=== PATIENT | female | born 1985 | race Caucasian/White ===

== ENCOUNTER 2016-09-06 11:51 | Emergency (ER) | payer OTHER ==
[2016-09-06] MEDS ORDERED: Sodium Chloride 0.9% 1,000 ML IV ONE (11:58)
[2016-09-06] MEDS ORDERED: Famotidine 20 MG/2 ML SDV IVPUSH ONE (11:58)
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
[2016-09-06 12:37] LABS: CHLORIDE,CL 110 mmol/L (98-110); SODIUM,NA 141 mmol/L (136-146)
[2016-09-06 12:41] VITALS: BP 125/90
--- NOTE | 2016-09-07 17:41 | CR ---
EXAM DATE: 09/06/16 PATIENT'S AGE: 31 Patient: DANIELLE GARCIA Facility: [place], [place] : 1985 Study: XRay Chest [id number] 12:22:59 PM Ordering Physician: Arjun Navarro Final Report: INDICATION: Shortness of breath. TECHNIQUE: Single AP view Comparison: 11/07/2013 FINDINGS: The cardiomediastinal contours are unchanged. No new focal or diffuse pulmonary opacities. No definite pneumothorax or pleural effusion. The bones are unchanged. IMPRESSION: No acute pulmonary process. Dictated by Quinten Angel MD @ Sep 06 2016 12:41PM (Electronic Signature) Report Signed by Proxy. TABITHA
== END 2016-09-06 12:51 | disposition home or self-care (01) ==
LOC: MW.ED 11:51
DX: F10.920 Alcohol use, unspecified with intoxication, uncomplicated (principal); K21.9 Gastro-esophageal reflux disease without esophagitis; F41.9 Anxiety disorder, unspecified; F32.9 Major depressive disorder, single episode, unspecified; F17.210 Nicotine dependence, cigarettes, uncomplicated; Z88.1 Allergy status to other antibiotic agents; Z88.8 Allergy status to other drugs, medicaments and biological substances; Z90.49 Acquired absence of other specified parts of digestive tract
CPT/HCPCS: 36415; 71010; 80053; 83690; 85025; 93005; 99284; G0480

== ENCOUNTER 2016-09-24 00:33 | Emergency (ER) | payer MEDICAID, OTHER ==
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
== END 2016-09-24 00:46 | disposition left against medical advice (07) ==
LOC: MW.ED 00:33
DX: F10.129 Alcohol abuse with intoxication, unspecified (principal); Z88.1 Allergy status to other antibiotic agents; Z90.49 Acquired absence of other specified parts of digestive tract; F17.210 Nicotine dependence, cigarettes, uncomplicated; K21.9 Gastro-esophageal reflux disease without esophagitis
CPT/HCPCS: 99281; 99282

== ENCOUNTER 2016-10-13 14:13 | Emergency (ER) | payer MEDICAID ==
[2016-10-13 14:28] VITALS: BP 131/78
[2016-10-13] MEDS ORDERED: Ketorolac 60 MG/2 ML SDV IM ONE (14:31)
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
--- NOTE | 2016-10-13 15:16 | CR ---
EXAMINATION: Left elbow HISTORY: Fall COMPARISON: 04/09/2011 TECHNIQUE: 2 views FINDINGS/IMPRESSION: There is no acute osseous abnormality, dislocation, or fracture identified. Bon e mineralization and joint spaces appear normal. No soft tissue swelling or joint effusion.
== END 2016-10-13 15:58 | disposition home or self-care (01) ==
LOC: MW.ED 14:13
DX: S50.02XA Contusion of left elbow, initial encounter (principal); F17.210 Nicotine dependence, cigarettes, uncomplicated; K21.9 Gastro-esophageal reflux disease without esophagitis; F41.9 Anxiety disorder, unspecified; Z85.038 Personal history of other malignant neoplasm of large intestine; Z90.49 Acquired absence of other specified parts of digestive tract; Z98.890 Other specified postprocedural states; Z79.899 Other long term (current) drug therapy; Z88.1 Allergy status to other antibiotic agents; W20.8XXA Other cause of strike by thrown, projected or falling object, initial encounter; Y93.89 Activity, other specified; Y92.69 Other specified industrial and construction area as the place of occurrence of the external cause; Y99.0 Civilian activity done for income or pay
CPT/HCPCS: 73070-26-LT; 73070-LT; 99282; 99283

== ENCOUNTER 2016-10-24 02:34 | Emergency (ER) | payer MEDICAID, OTHER ==
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
[2016-10-24 04:28] VITALS: BP 120/74
--- NOTE | 2016-10-26 14:09 | CR ---
EXAM DATE: 10/24/16 PATIENT'S AGE: 31 Patient: DANIELLE GARCIA Facility: [place], [place] Site . Site : 1985 Study: XRay Extremity Right Foot [id number]/1/2017 3:43:15 AM Ordering Physician: Doctor Christopher Final Report: Indication: Pain in great toe and ankle after jumping off a dock Technique: Two views right foot. Comparison: None Findings: Bones: Alignment is normal. No fractures or bone lesions. Joint spaces: Unremarkable. Soft tissues: Unremarkable. Impression: Negative. Dictated by Darlene Prescott MD @ Oct 24 2016 3:58AM (Electronic Signature) Report Signed by Proxy. TABITHA
== END 2016-10-24 04:25 | disposition home or self-care (01) ==
LOC: MW.ED 02:34
DX: S99.921A Unspecified injury of right foot, initial encounter (principal); F17.210 Nicotine dependence, cigarettes, uncomplicated; K21.9 Gastro-esophageal reflux disease without esophagitis; Z88.1 Allergy status to other antibiotic agents; Z90.49 Acquired absence of other specified parts of digestive tract; X58.XXXA Exposure to other specified factors, initial encounter
CPT/HCPCS: 73620-26-RT; 73620-RT; 99282; 99283

== ENCOUNTER 2016-11-07 05:05 | Emergency (ER) | payer MEDICAID ==
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
[2016-11-07] MEDS ORDERED: Acetaminophen 500 MG Tab PO ONE (05:28)
[2016-11-07 06:33] VITALS: BP 126/66
--- NOTE | 2016-11-09 11:12 | CT ---
EXAM DATE: 11/07/16 PATIENT'S AGE: 31 Patient: DANIELLE GARCIA Facility: [place], [place] Site . Site : 1985 Study: CT Head WO CONT [id number]/15/2017 5:38:57 AM Ordering Physician: Marline Sosa Final Report: INDICATION: Headache. TECHNIQUE: CT head without i.v. contrast. COMPARISON: 05/11/2015. FINDINGS: CSF spaces: Within normal limits for age. Brain parenchyma: The brain parenchyma is normal in appearance with preservation of the michael-white differentiation. No sign of mass, hemorrhage, or midline shift seen. Skull base and calvarium: The visualized paranasal sinuses are well aerated. The mastoid air cells are clear. The visualized orbits are grossly unremarkable. No skull fractures are seen. IMPRESSION: 1. No evidence of acute infarction, intracranial hemorrhage, or mass effect seen. Dictated by Jimmy Fernandez MD @ 11/07/2016 6:15:00 AM Dictated by: Jimmy Fernandez MD @ 11/07/2016 06:15:05 (Electronic Signature) Report Signed by Proxy. [facility]ITALEsperanza
== END 2016-11-07 06:22 | disposition home or self-care (01) ==
LOC: MW.ED 05:05
DX: R51 Headache (principal); T74.21XA Adult sexual abuse, confirmed, initial encounter; K21.9 Gastro-esophageal reflux disease without esophagitis; F41.9 Anxiety disorder, unspecified; F32.9 Major depressive disorder, single episode, unspecified; F17.210 Nicotine dependence, cigarettes, uncomplicated; Z88.1 Allergy status to other antibiotic agents; Z90.49 Acquired absence of other specified parts of digestive tract; Z98.890 Other specified postprocedural states
CPT/HCPCS: 70450; 99284; A9270

== ENCOUNTER 2017-01-09 01:43 | Emergency (ER) | payer MEDICAID ==
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
[2017-01-09 02:37] LABS: CHLORIDE,CL 111 mmol/L (98-110); SODIUM,NA 142 mmol/L (136-146)
[2017-01-09 04:33] VITALS: BP 119/85
--- NOTE | 2017-01-11 14:35 | CT ---
EXAM DATE: 01/09/17 PATIENT'S AGE: 31 Patient: DANIELLE GARCIA Facility: [place], [place] Site . Site : 1985 Study: CT Head WO CONT [id number]/16/2017 3:00:23 AM Ordering Physician: Thierry Ramos Final Report: INDICATIONS: Pain. Hit head tonight. History of seizures. TECHNIQUE: CT head without contrast. COMPARISON: CT head without contrast November 07, 2016. FINDINGS: No mass effect, midline shift or hydrocephalus. No CT evidence of acute hemorrhage or infarction. No abnormal extra-axial fluid collection. Bone windows show no acute abnormality. Soft tissue swelling of the right anterior scalp. IMPRESSION: No acute intracranial abnormality. Soft tissue swelling right anterior scalp. Dictated by Darryl Ruiz MD @ 01/09/2017 3:16:15 AM Dictated by: Darryl Ruiz MD @ 01/09/2017 03:16:26 (Electronic Signature) Report Signed by Proxy. [facility] H[facility]PITALEsperanza
--- NOTE | 2017-01-11 14:36 | CR ---
EXAM DATE: 01/09/17 PATIENT'S AGE: 31 Patient: DANIELLE GARCIA Facility: [place], [place] Site . Site : 1985 Study: XRay Chest [id number]/16/2017 3:01:03 AM Ordering Physician: Thierry Ramos Final Report: INDICATION: PAIN, SOB TECHNIQUE: Chest 1 view. COMPARISON: 09/06/2016. FINDINGS: No pneumothorax or pleural effusion. Lungs are clear. Cardiac and mediastinal contours are within normal limits. Upper abdomen and osseous structures as imaged show no acute abnormality. IMPRESSION: No acute cardiopulmonary disease. Dictated by: Darryl Ruiz MD @ 01/09/2017 03:31:01 (Electronic Signature) Report Signed by Proxy. TABITHA
== END 2017-01-09 03:42 | disposition home or self-care (01) ==
LOC: MW.ED 01:43
DX: S09.90XA Unspecified injury of head, initial encounter (principal); S00.03XA Contusion of scalp, initial encounter; F17.210 Nicotine dependence, cigarettes, uncomplicated; K21.9 Gastro-esophageal reflux disease without esophagitis; Z90.49 Acquired absence of other specified parts of digestive tract; Z88.1 Allergy status to other antibiotic agents; Z88.6 Allergy status to analgesic agent; W01.10XA Fall on same level from slipping, tripping and stumbling with subsequent striking against unspecified object, initial encounter
CPT/HCPCS: 36415; 70450; 70450-26; 71010; 71010-26; 80053; 84703; 85025; 93005; 99283; 99285-25

== ENCOUNTER 2017-04-10 00:31 | Emergency (ER) | payer MEDICAID | END 2017-04-10 00:32 | disposition home or self-care (01) | LOC: MW.ED 00:31 | DX: Z53.21 Procedure and treatment not carried out due to patient leaving prior to being seen by health care provider (principal) ==

== ENCOUNTER 2017-08-02 21:35 | Emergency (ER) | payer OTHER ==
[2017-08-02] MEDS ORDERED: Sodium Chloride 0.9% 1,000 ML IV ONE (21:45)
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
[2017-08-03 00:31] VITALS: BP 130/90
== END 2017-08-03 00:10 | disposition home or self-care (01) ==
LOC: MW.ED 21:35
DX: O99.89 Other specified diseases and conditions complicating pregnancy, childbirth and the puerperium (principal); R10.30 Lower abdominal pain, unspecified; F17.210 Nicotine dependence, cigarettes, uncomplicated; Z88.1 Allergy status to other antibiotic agents
CPT/HCPCS: 36415; 81001; 84702; 85025; 96360; 99284; J7040; 99283

== ENCOUNTER 2017-08-28 04:06 | Emergency (ER) | payer MEDICAID, OTHER ==
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
[2017-08-28] MEDS ORDERED: Acetaminophen 325 MG Tab PO ONE (05:06)
[2017-08-28] MEDS ORDERED: methylPREDNISolone Sodium Succinate 125 MG/2 ML SDV IM ONE (05:06)
[2017-08-28 05:43] VITALS: BP 127/74
--- NOTE | 2017-08-30 11:17 | CR ---
EXAM DATE: 08/28/17 PATIENT'S AGE: 32 Patient: DANIELLE GARCIA Facility: [place], [place] Site . Site : 1985 Study: XRay Knee Right [id number]/5/2018 11:41:13 PM Ordering Physician: Doctor Christopher Final Report: Indication: Pain, no known injury Technique: Two views right knee Comparison: None Findings: Bones: Alignment is normal. No fractures or bone lesions. Joint spaces: Unremarkable. Soft tissues: Unremarkable. Impression: Negative. Dictated by Darlene Prescott MD @ Aug 29 2017 12:12AM (Electronic Signature) Report Signed by Proxy. TABITHA
== END 2017-08-28 05:45 | disposition home or self-care (01) ==
LOC: MW.ED 04:06
DX: O99.89 Other specified diseases and conditions complicating pregnancy, childbirth and the puerperium (principal); M25.561 Pain in right knee; O99.619 Diseases of the digestive system complicating pregnancy, unspecified trimester; K21.9 Gastro-esophageal reflux disease without esophagitis; O99.340 Other mental disorders complicating pregnancy, unspecified trimester; F41.9 Anxiety disorder, unspecified; O99.330 Smoking (tobacco) complicating pregnancy, unspecified trimester; F17.210 Nicotine dependence, cigarettes, uncomplicated; Z88.1 Allergy status to other antibiotic agents; Z88.8 Allergy status to other drugs, medicaments and biological substances
CPT/HCPCS: 73560; 96372; 99283; A9270; J2930

== ENCOUNTER 2017-10-05 22:34 | Emergency (ER) | payer SELFPAY ==
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
[2017-10-05 23:00] VITALS: BP 124/85
--- NOTE | 2017-10-06 11:32 | CR ---
EXAM DATE: 10/05/17 PATIENT'S AGE: 32 Patient: DANIELLE GARCIA Facility: [place], [place] Site . Site : 1985 Study: XRay Knee Right [id number]/12/2018 11:10:44 PM Ordering Physician: Doctor Christopher Final Report: INDICATION: pain, no injury, pt states knee is "locked" TECHNIQUE: Three views of the right knee COMPARISON: 08/28/2017 FINDINGS: Bones: No fractures or bone lesions. Joint spaces: Unremarkable. Soft tissues: Unremarkable. IMPRESSION: No acute bony abnormality Dictated by Richard Donohue MD @ 10/05/2017 11:21:32 PM Dictated by: Richard Donohue MD @ 10/05/2017 23:22:14 (Electronic Signature) Report Signed by Proxy. [facility]ITALEsperanza
== END 2017-10-06 00:04 | disposition home or self-care (01) ==
LOC: MW.ED 22:34
DX: M25.561 Pain in right knee (principal); Z88.1 Allergy status to other antibiotic agents; Z88.8 Allergy status to other drugs, medicaments and biological substances
CPT/HCPCS: 73562-26-RT; 73562-RT; 99283

== ENCOUNTER 2017-11-04 21:42 | Emergency (ER) | payer SELFPAY ==
[2017-11-04] MEDS ORDERED: Sodium Chloride 0.9% 1,000 ML IV ONE (21:48)
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
[2017-11-04 22:32] LABS: CHLORIDE,CL 106 mmol/L (98-107); SODIUM,NA 143 mmol/L (136-145)
[2017-11-04 23:15] VITALS: BP 115/75
== END 2017-11-04 23:10 | disposition home or self-care (01) ==
LOC: MW.ED 21:42
DX: F10.129 Alcohol abuse with intoxication, unspecified (principal); Z88.1 Allergy status to other antibiotic agents; Y90.8 Blood alcohol level of 240 mg/100 ml or more
CPT/HCPCS: 36415; 80053; 80305; 81001; 84703; 85025; 85610; 99285; G0480; J7040; 96360

== ENCOUNTER 2017-12-13 00:03 | Emergency (ER) | payer SELFPAY ==
[2017-12-13 00:09] VITALS: BP 150/100
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
== END 2017-12-13 00:25 | disposition left against medical advice (07) ==
LOC: MW.ED 00:03
DX: S99.911A Unspecified injury of right ankle, initial encounter (principal); J40 Bronchitis, not specified as acute or chronic; Z88.1 Allergy status to other antibiotic agents; F17.210 Nicotine dependence, cigarettes, uncomplicated; X58.XXXA Exposure to other specified factors, initial encounter
CPT/HCPCS: 99283

== ENCOUNTER 2018-01-08 18:33 | Emergency (ER) | payer SELFPAY ==
[2018-01-08] MEDS ORDERED: Sodium Chloride 0.9% 2.5 ML Syringe FLUSH PRN (18:43)
[2018-01-08] MEDS ORDERED: Sodium Chloride 0.9% 10 ML Syringe FLUSH PRN (18:43)
[2018-01-08] MEDS ORDERED: LORazepam 2 MG/ML SDV ONE (18:47)
[2018-01-08] MEDS ORDERED: Ondansetron 4 MG/2 ML SDV ONE (18:48)
[2018-01-08] MEDS ORDERED: Ondansetron 4 MG/2 ML SDV IVPUSH ONE (18:48)
[2018-01-08] MEDS ORDERED: LORazepam 2 MG/ML SDV IVPUSH ONE ×2 (18:48→20:07)
[2018-01-08] MEDS ORDERED: Morphine 2 MG/ML Syringe ONE (18:51)
[2018-01-08] MEDS ORDERED: diphenhydrAMINE 50 MG/ML SDV ONE (18:56)
[2018-01-08 18:57] VITALS: BP 144/79
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
[2018-01-08] MEDS ORDERED: Morphine 4 MG/ML Syringe IVPUSH ONE (19:13)
[2018-01-08] MEDS ORDERED: Iopamidol 755 MG/ML 200 ML Multipack Bottle IVPUSH STA (19:17)
[2018-01-08 19:19] LABS: CHLORIDE,CL 104 mmol/L (98-107); SODIUM,NA 141 mmol/L (136-145)
[2018-01-08] MEDS ORDERED: Sodium Chloride 0.9% 1,000 ML IV ONE (19:22)
[2018-01-08] MEDS: diphenhydrAMINE 50 MG/ML SDV IVPUSH ONE ×2 (19:26→19:30)
[2018-01-08] MEDS ORDERED: Ziprasidone Mesylate 20 MG Vial IM ONE (20:22)
[2018-01-08] MEDS ORDERED: Water For Injection, Sterile 20 ML ONE (20:24)
[2018-01-08] MEDS ORDERED: Water For Injection, Sterile 20 ML SDV INJECT STA (20:39)
[2018-01-08] MEDS ORDERED: Nicotine 14 MG/24 Hr Patch TRDERM ONE (20:48)
--- NOTE | 2018-01-10 13:30 | CT ---
EXAM DATE: 01/08/18 PATIENT'S AGE: 32 Patient: DANIELLE GARCIA Facility: [place], [place] Site . Site : 1985 Study: CT Head [id number]/15/2018 7:09:01 PM Ordering Physician: Doctor Christopher Final Report: INDICATION: Trauma. TECHNIQUE: CT head without IV contrast. COMPARISON: CT head 01/09/2017. FINDINGS: Small amounts of fluid and mucosal thickening in the frontal, ethmoidal and maxillary sinuses. Findings consistent with mild sinusitis. No intracranial hemorrhage, edema, or mass effect. Stable benign calcific density in the subcutaneous tissues of the right lower occipital scalp. Remainder negative. IMPRESSION: No acute intracranial disease. No intracranial hemorrhage. Mild sinusitis. Please note that all CT scans at this facility use dose modulation, iterative reconstruction, and/or weight-based dosing when appropriate to reduce radiation dose to as low as reasonably achievable. Dictated by Dmitry Obregon MD @ Jan 08 2018 7:20PM (Electronic Signature) Report Signed by Proxy. MTDD
--- NOTE | 2018-01-10 13:31 | CT ---
EXAM DATE: 01/08/18 PATIENT'S AGE: 32 Patient: DANIELLE GARCIA Facility: [place], [place] Site . Site : 1985 Study: CT Spine Cervical [id number] 7:10:56 PM Ordering Physician: Doctor Christopher Final Report: HISTORY: Trauma. COMPARISON: None. TECHNIQUE: Noncontrast axial images were obtained through the cervical spine with sagittal and coronal reconstructions. FINDINGS: No evidence for acute fracture or dislocation. Vertebral body and disc space heights are preserved. Alignment is within normal. The central neural canal is patent. Prevertebral soft tissues are within normal. Please note that all CT scans at this facility use dose modulation, iterative reconstruction, and/or weight-based dosing when appropriate to reduce radiation dose to as low as reasonably achievable. Dictated by Gemini Ray MD @ Jan 08 2018 7:24PM (Electronic Signature) Report Signed by Proxy. MTDD
--- NOTE | 2018-01-10 13:32 | CT ---
EXAM DATE: 01/08/18 PATIENT'S AGE: 32 Patient: DANIELLE GARCIA Facility: [place], [place] Site . Site : 1985 Study: CT Chest [id number] 7:26:09 PM Ordering Physician: Doctor Christopher Final Report: HISTORY: Trauma. Chest pain. COMPARISON: None. TECHNIQUE: Axial images were obtained through the chest following 75 cc of Isovue-370 intravenous contrast. FINDINGS: Minimal dependent ground-glass opacities likely related to atelectasis. The lungs are otherwise clear. No thoracic lymphadenopathy. The mediastinal structures appear intact. No pleural or pericardial effusion. Post cholecystectomy changes in the upper abdomen. The adrenal glands are normal. No acute fracture. IMPRESSION: Negative chest. Please note that all CT scans at this facility use dose modulation, iterative reconstruction, and/or weight-based dosing when appropriate to reduce radiation dose to as low as reasonably achievable. Dictated by Gemini Ray MD @ Jan 08 2018 7:26PM (Electronic Signature) Report Signed by Proxy. MTDD
--- NOTE | 2018-01-10 13:33 | CT ---
EXAM DATE: 01/08/18 PATIENT'S AGE: 32 Patient: DANIELLE GARCIA Facility: [place], [place] Site . Site : 1985 Study: CT Abdomen/Pelvis [id number]/15/[id number] 7:29:07 PM Ordering Physician: Doctor Christopher Final Report: HISTORY: Trauma. Abdominal pain. COMPARISON: None. Technique : axial images were obtained through the abdomen and pelvis following 75 cc of Isovue 370 intravenous contrast. FINDINGS: The lung bases are essentially clear. Post cholecystectomy changes. The spleen, pancreas, adrenal glands and kidneys are within normal. The appendix is normal in caliber. No evidence for bowel obstruction. No lymphadenopathy or ascites. No acute fracture. IMPRESSION: No traumatic injury of the abdomen or pelvis. Please note that all CT scans at this facility use dose modulation, iterative reconstruction, and/or weight-based dosing when appropriate to reduce radiation dose to as low as reasonably achievable. Dictated by Gemini Ray MD @ Jan 08 2018 7:46PM (Electronic Signature) Report Signed by Proxy. MTDEsperanza
--- NOTE | 2018-01-10 13:34 | CR ---
EXAM DATE: 01/08/18 PATIENT'S AGE: 32 Patient: DANIELLE GARCIA Facility: [place], [place] Site . Site : 1985 Study: XRay Extremity Right humerus [id number]/[id number]/2018 7:51:37 PM Ordering Physician: Doctor Christopher Final Report: Indication: Injury and pain Technique: Right humerus 2 views Comparison: None Findings: Bones: Alignment is normal. No fractures or bone lesions. Joint spaces: Unremarkable. Soft tissues: Unremarkable. Impression: No sign of acute injury. Dictated by Kaushik Otoole MD @ Jan 08 2018 8:04PM (Electronic Signature) Report Signed by Proxy. TABITHA
== END 2018-01-08 21:00 ==
LOC: MW.ED 18:33
DX: S40.021A Contusion of right upper arm, initial encounter (principal); W13.4XXA Fall from, out of or through window, initial encounter
CPT/HCPCS: 70450; 71260; 72125; 73060; 74177; 80053; 80305; 81001; 84703; 85025; 86850; 86900; 86901; 96361; 96372; 96374; 96375; 96376; 99285; A9270; G0390; G0480; J2060; J2270; J2405; J3486; J7040; Q9967; J1200

== ENCOUNTER 2018-05-15 18:48 | Emergency (ER) | payer MEDICAID ==
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
[2018-05-15 20:11] VITALS: BP 129/76
--- NOTE | 2018-05-16 14:47 | CR ---
EXAM DATE: 05/15/18 PATIENT'S AGE: 32 Patient: DANIELLE GARCIA Facility: [place], [place] Site . Site : 1985 Study: XRay Extremity Right wrist-05/15/2018 7:26:02 PM Ordering Physician: Kathe Fernandes Final Report: 2 views of the right wrist. INDICATION: Pain. IMPRESSION: No visualized fracture. Alignments anatomic. No additional osseous lesion. Dictated by Joaquim Isaac MD @ May 15 2018 8:03PM (Electronic Signature) Report Signed by Proxy. TABITHA
== END 2018-05-15 20:12 | disposition home or self-care (01) ==
LOC: MW.ED 18:48
DX: S69.91XA Unspecified injury of right wrist, hand and finger(s), initial encounter (principal); F17.210 Nicotine dependence, cigarettes, uncomplicated; Z88.1 Allergy status to other antibiotic agents; Z90.49 Acquired absence of other specified parts of digestive tract; Z98.890 Other specified postprocedural states; X50.1XXA Overexertion from prolonged static or awkward postures, initial encounter; Y93.72 Activity, wrestling
CPT/HCPCS: 73100-26-RT; 73100-RT; 99283

== ENCOUNTER 2018-06-04 01:02 | Emergency (ER) | payer MEDICAID ==
[2018-06-04] MEDS ORDERED: Ketorolac 60 MG/2 ML SDV IM ONE (01:23)
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
[2018-06-04 02:31] VITALS: BP 115/76
--- NOTE | 2018-06-04 02:49 | CR ---
INDICATION: Knee pain COMPARISON: None available. FINDINGS: The left knee was examined with AP and lateral views for a total of two views. There is no sign of fracture or dislocation. The medial and lateral compartments are normal in height. There is no sign of a joint effusion. No soft tissue abnormality is seen. IMPRESSION: Normal left knee. Dictated by Orlando Cosby MD @ Jun 04 2018 2:48AM Signed by Dr. Orlando Cosby @ Jun 04 2018 2:48AM
== END 2018-06-04 02:40 | disposition home or self-care (01) ==
LOC: MW.ED 01:02
DX: S89.92XA Unspecified injury of left lower leg, initial encounter (principal); Z88.8 Allergy status to other drugs, medicaments and biological substances; F17.210 Nicotine dependence, cigarettes, uncomplicated; W03.XXXA Other fall on same level due to collision with another person, initial encounter
CPT/HCPCS: 73560; 96372; 99283; J1885

== ENCOUNTER 2018-06-16 00:06 | Emergency (ER) | payer MEDICAID ==
[2018-06-16 00:34] VITALS: BP 124/75
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
== END 2018-06-16 01:25 | disposition home or self-care (01) ==
LOC: MW.ED 00:06
DX: S89.92XA Unspecified injury of left lower leg, initial encounter (principal); Z91.14 Patient's other noncompliance with medication regimen; Z88.1 Allergy status to other antibiotic agents; X58.XXXA Exposure to other specified factors, initial encounter
CPT/HCPCS: 99282; 99283

== ENCOUNTER 2018-07-23 00:21 | Emergency (ER) | payer MEDICAID ==
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
[2018-07-23 00:37] VITALS: BP 183/163
== END 2018-07-23 00:40 | disposition home or self-care (01) ==
LOC: MW.ED 00:21
DX: Z04.3 Encounter for examination and observation following other accident (principal); Z88.1 Allergy status to other antibiotic agents
CPT/HCPCS: 99283

== ENCOUNTER 2018-07-27 09:22 | Emergency (ER) | payer MEDICAID ==
[2018-07-27 09:37] VITALS: BP 130/85
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
== END 2018-07-27 10:04 | disposition home or self-care (01) ==
LOC: MW.ED 09:22
DX: R56.9 Unspecified convulsions (principal); F17.210 Nicotine dependence, cigarettes, uncomplicated; Z88.1 Allergy status to other antibiotic agents
CPT/HCPCS: 99284

== ENCOUNTER 2018-08-14 10:49 | Emergency (ER) | payer MEDICAID ==
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
[2018-08-14 12:11] VITALS: BP 132/80
--- NOTE | 2018-08-14 12:27 | CR ---
INDICATION: Chest pain COMPARISON: none TECHNIQUE: Portable AP semi-erect chest performed at 11:25 a.m. FINDINGS: The lungs are clear. There is no evidence of pneumothorax. The heart, mediastinum and pulmonary vessels are of normal size. There is no evidence of pleural fluid. IMPRESSION: Negative chest. Dictated by Richard Mera MD @ Aug 14 2018 12:25PM Signed by Dr. Richard Mera @ Aug 14 2018 12:26PM
== END 2018-08-14 12:11 ==
LOC: MW.ED 10:49
DX: Z13.9 Encounter for screening, unspecified (principal); Z88.1 Allergy status to other antibiotic agents
CPT/HCPCS: 71045; 71045-26; 80053; 81003; 81025; 85025; 93005; 99285-25

== ENCOUNTER 2019-05-18 02:31 | Emergency (ER) | payer MEDICAID ==
[2019-05-18] MEDS ORDERED: Ondansetron 4 MG/2 ML SDV IVPUSH ONE (02:50)
[2019-05-18] MEDS ORDERED: Sodium Chloride 0.9% 1,000 ML IV ONE (02:50)
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
[2019-05-18 03:46] LABS: ACETAMINOPHEN <2.0 ug/mL; BLOOD UREA NITROGEN,BUN 7 mg/dL (7.0-18.0); CARBON DIOXIDE,CO2 24.9 mmol/L (21.0-32.0); CHLORIDE,CL 105 mmol/L (98-107); GLUCOSE RANDOM 101 mg/dL (74-106); POTASSIUM,K 3.4 mmol/L (3.5-5.1); SODIUM,NA 143 mmol/L (136-145)
[2019-05-18 04:56] VITALS: BP 113/71; PULSE 77
== END 2019-05-18 04:55 | disposition home or self-care (01) ==
LOC: MW.ED 02:31
DX: R42 Dizziness and giddiness (principal); R11.0 Nausea; F17.210 Nicotine dependence, cigarettes, uncomplicated; Z98.890 Other specified postprocedural states; Z88.1 Allergy status to other antibiotic agents
CPT/HCPCS: 36415; 80053; 80305; 80320; 80329; 81001; 81025; 83735; 84443; 85025; 93005; 96361; 96374; 99284; J2405; J7030; G0480

== ENCOUNTER 2019-09-30 04:03 | Emergency (ER) | payer MEDICAID ==
[2019-09-30 04:26] VITALS: PULSE 92
[2019-09-30] MEDS ORDERED: Bacitracin Oint 1 GM U/D Packet TOP ONE (04:34)
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
[2019-09-30 05:48] VITALS: BP 118/72
--- NOTE | 2019-09-30 06:25 | CR ---
Indication: Pain Technique: Three views Comparison: None Findings: Bones: Alignment is normal. No fractures or bone lesions. Joint spaces: Unremarkable. Soft tissues: Unremarkable. Dictated by Max Dugan MD @ Sep 30 2019 6:24AM Signed by Dr. Max Dugan @ Sep 30 2019 6:24AM
--- NOTE | 2019-09-30 06:25 | CR ---
Indication: Pain Technique: Two views Comparison: None Findings: Bones: Alignment is normal. No fractures or bone lesions. Joint spaces: Unremarkable. Soft tissues: Unremarkable. Dictated by Max Dugan MD @ Sep 30 2019 6:23AM Signed by Dr. Max Dugan @ Sep 30 2019 6:24AM
== END 2019-09-30 05:45 | disposition home or self-care (01) ==
LOC: MW.ED 04:03
DX: S80.211A Abrasion, right knee, initial encounter (principal); S80.212A Abrasion, left knee, initial encounter; R20.2 Paresthesia of skin; Z88.1 Allergy status to other antibiotic agents; X58.XXXA Exposure to other specified factors, initial encounter
CPT/HCPCS: 72100; 72100-26; 73501-26-LT; 73501-LT; 99282; 99284

== ENCOUNTER 2019-10-18 12:12 | Emergency (ER) | payer MEDICAID ==
[2019-10-18] MEDS ORDERED: Sodium Chloride 0.9% 2.5 ML Syringe FLUSH PRN (12:20)
[2019-10-18] MEDS ORDERED: Sodium Chloride 0.9% 10 ML Syringe FLUSH PRN (12:20)
[2019-10-18] MEDS ORDERED: Haloperidol Lactate 5 MG/ML SDV ONE (12:23)
[2019-10-18] MEDS ORDERED: Haloperidol Lactate 5 MG/ML SDV IM ONE (12:23)
--- NOTE | 2019-10-18 12:25 | EDM.PDOC ---
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 given to patients seen in the emergency department who are being discharged. This information is to outline your options for follow-up care. We provide all patients seen in our emergency department with a follow-up referral. The need for follow-up, as well as the timing and circumstances, are variable depending upon the specifics of your emergency department visit. If you don't have a primary care physician on staff, we will provide you with a referral. We always advise you to contact your personal physician following an emergency department visit to inform them of the circumstance of the visit and for follow-up with them and/or the need for any referrals to a consulting specialist. The emergency department will also refer you to a specialist when appropriate. This referral assures that you have the opportunity for follow-up care with a specialist. All of these measure are taken in an effort to provide you with optimal care, which includes your follow-up. Under all circumstances we always encourage you to contact your private physician who remains a resource for coordinating your care. When calling for follow-up care, please make the office aware that this follow-up is from your recent emergency room visit. If for any reason you are refused follow-up, please contact the [facility] Emergency Department at and asked to speak to the emergency department charge nurse. If you do not have a primary care physician that is caring for you, you can contact these clinics below to set up an appointment to establish care: Nalini Petit [facility] - Primary Care [address] [place] [id number] [facility] [address] [place] [id number] Sepsis Event Note (ED) - Focused Exam Vital Signs: Vital Signs Temp Pulse Resp BP Pulse Ox 10/18/19 15:41 103 H 18 151/104 H 100 10/18/19 14:40 106 H 18 138/86 96 10/18/19 14:11 115 H 18 134/73 97 10/18/19 13:40 106 H 133/87 95 10/18/19 13:12 103 H 10/18/19 12:16 36.3 C 139 H 24 H 129/67 94 L - My Orders Last 24 Hours: My Active Orders 10/18/19 12:20 Cardiac Monitoring [RC] . DIRECTED Pulse Oximetry [RC] ASDIRECTED Sodium Chloride 0.9% [Saline Flush] 10 ml FLUSH ASDIRECTED PRN Sodium Chloride 0.9% [Saline Flush] 2.5 ml FLUSH ASDIRECTED PRN Saline Lock Insert [OM.PC] Stat 10/18/19 12:24 EKG 12 Lead [EKG Documentation Completion] [RC] STAT 10/18/19 12:52 POC Glucose [Blood Glucose Check, Bedside] [RC] ONETIME 10/18/19 13:30 Dextrose 5%-Ringers 1,000 ml IV ASDIRECTED 10/18/19 15:39 EKG 12 Lead [EKG Documentation Completion] [RC] STAT - Assessment/Plan Last 24 Hours: My Active Orders 10/18/19 12:20 Cardiac Monitoring [RC] . DIRECTED Pulse Oximetry [RC] ASDIRECTED Sodium Chloride 0.9% [Saline Flush] 10 ml FLUSH ASDIRECTED PRN Sodium Chloride 0.9% [Saline Flush] 2.5 ml FLUSH ASDIRECTED PRN Saline Lock Insert [OM.PC] Stat 10/18/19 12:24 EKG 12 Lead [EKG Documentation Completion] [RC] STAT 10/18/19 12:52 POC Glucose [Blood Glucose Check, Bedside] [RC] ONETIME 10/18/19 13:30 Dextrose 5%-Ringers 1,000 ml IV ASDIRECTED 10/18/19 15:39 EKG 12 Lead [EKG Documentation Completion] [RC] STAT
[2019-10-18] MEDS ORDERED: Sodium Chloride 0.9% 1,000 ML IV ONE ×2 (12:34→12:53)
[2019-10-18] MEDS ORDERED: LORazepam 2 MG/ML SDV IVPUSH ONE (12:35)
[2019-10-18] MEDS ORDERED: Magnesium Sulfate/Water 2 GM in Premix Bag 1 BAG IV ONE (13:01)
[2019-10-18 13:09] LABS: BLOOD UREA NITROGEN,BUN 7 mg/dL (7.0-18.0); CARBON DIOXIDE,CO2 13.3 mmol/L (21.0-32.0); CHLORIDE,CL 99 mmol/L (98-107); GLUCOSE RANDOM 126 mg/dL (74-106); POTASSIUM,K 3.4 mmol/L (3.5-5.1); SODIUM,NA 138 mmol/L (136-145)
[2019-10-18 13:30] LABS: ACETAMINOPHEN <2.0 ug/mL
[2019-10-18] MEDS ORDERED: Dextrose 5%-Ringers 1,000 ML IV SCH (13:30)
[2019-10-18] MEDS ORDERED: cefTRIAXone 1 GM in Premix Bag 1 BAG IV ONE (14:08)
[2019-10-18 15:04] LABS: CARBON DIOXIDE,CO2 21.1 mmol/L (21.0-32.0); POTASSIUM,K 3.1 mmol/L (3.5-5.1)
[2019-10-18 15:45] VITALS: BP 151/104
--- NOTE | 2019-10-18 15:47 | CT ---
CT chest Technique: Multiple axial sections were obtained from above the lung apices inferiorly through the lung bases. Intravenous contrast was utilized. Study performed as a pulmonary angiogram protocol. Comparison: No prior chest imaging is available. Findings: Pulmonary arteries are not moderately well opacified. No filling defects are seen to indicate discrete pulmonary embolism. Aorta shows no aneurysm. Mediastinum shows no adenopathy. Hilar regions are within normal limits. No pericardial thickening is seen. Visualized upper abdominal structures shows no discrete abnormality. Lung window settings were reviewed. No acute parenchymal change is seen. No pleural effusions are noted. Bone window settings were reviewed which shows no acute osseous finding. Impression: 1. No findings of pulmonary embolism are seen. 2. Nothing acute is appreciated on CT study of the chest. Diagnostic code #1 This report was dictated in MDT
[2019-10-18 16:18] VITALS: PULSE 89
[2019-10-18] MEDS ORDERED: Iopamidol 755 MG/ML 50 ML Bottle IV ONE (19:11)
== END 2019-10-18 16:19 | disposition home or self-care (01) ==
LOC: MW.ED 12:12
DX: F41.9 Anxiety disorder, unspecified (principal); R82.71 Bacteriuria; E87.6 Hypokalemia; R74.0 Nonspecific elevation of levels of transaminase and lactic acid dehydrogenase [LDH]; Z88.1 Allergy status to other antibiotic agents
CPT/HCPCS: 36415; 71275; 80048; 80053; 80307; 81001; 82803; 82962; 83605; 84443; 84484; 84703; 85025; 85379; 93005; 96365; 96372; 96375; 99285; J1630; J2060; J3475; J7030; Q9967; 99283

== ENCOUNTER 2019-11-13 13:55 | Emergency (ER) | payer MEDICAID ==
[2019-11-13] MEDS ORDERED: Ondansetron 4 MG/2 ML SDV IVPUSH ONE (14:01)
[2019-11-13] MEDS ORDERED: LORazepam 2 MG/ML SDV IVPUSH ONE (14:01)
[2019-11-13] MEDS ORDERED: Sodium Chloride 0.9% 2.5 ML Syringe FLUSH PRN (14:01)
[2019-11-13] MEDS ORDERED: Sodium Chloride 0.9% 1,000 ML IV ONE ×2 (14:01→15:59)
[2019-11-13] MEDS ORDERED: Sodium Chloride 0.9% 10 ML Syringe FLUSH PRN (14:01)
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
[2019-11-13 14:34] LABS: CARBON DIOXIDE,CO2 13.8 mmol/L (21.0-32.0); POTASSIUM,K 3.7 mmol/L (3.5-5.1)
[2019-11-13 18:17] VITALS: BP 131/83; PULSE 99
== END 2019-11-13 18:10 | disposition home or self-care (01) ==
LOC: MW.ED 13:55
DX: F45.8 Other somatoform disorders (principal); R29.0 Tetany; E87.8 Other disorders of electrolyte and fluid balance, not elsewhere classified; F17.210 Nicotine dependence, cigarettes, uncomplicated; Z88.1 Allergy status to other antibiotic agents
CPT/HCPCS: 36415; 80053; 80307; 83690; 83735; 84703; 85025; 93005; 96361; 96374; 96375; 99284; J2060; J2405; J7030; 99283

== ENCOUNTER 2019-11-15 13:48 | Emergency (ER) | payer MEDICAID ==
[2019-11-15 13:58] VITALS: BP 131/74; PULSE 88
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
== END 2019-11-15 15:46 | disposition home or self-care (01) ==
LOC: MW.ED 13:48
DX: E87.6 Hypokalemia (principal); R29.0 Tetany; R09.02 Hypoxemia; F17.210 Nicotine dependence, cigarettes, uncomplicated; Z88.1 Allergy status to other antibiotic agents
CPT/HCPCS: 99282; 99284

== ENCOUNTER 2019-12-04 12:04 | Emergency (ER) | payer MEDICAID ==
[2019-12-04 12:23] VITALS: BP 146/87; PULSE 92
[2019-12-04] MEDS ORDERED: Ondansetron 4 MG Tab.DIS PO ONE (12:33)
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
[2019-12-04 13:05] LABS: BLOOD UREA NITROGEN,BUN 8 mg/dL (7.0-18.0); CHLORIDE,CL 100 mmol/L (98-107); GLUCOSE RANDOM 92 mg/dL (74-106); POTASSIUM,K 3.2 mmol/L (3.5-5.1); SODIUM,NA 135 mmol/L (136-145)
== END 2019-12-04 13:24 | disposition home or self-care (01) ==
LOC: MW.ED 12:04
DX: E87.6 Hypokalemia (principal); E83.51 Hypocalcemia; R11.2 Nausea with vomiting, unspecified; G40.909 Epilepsy, unspecified, not intractable, without status epilepticus; Z88.0 Allergy status to penicillin; Z88.1 Allergy status to other antibiotic agents
CPT/HCPCS: 36415; 80048; 99284; A9270; 99283

== ENCOUNTER 2019-12-11 15:24 | Emergency (ER) | payer MEDICAID ==
[2019-12-11] MEDS ORDERED: LORazepam 0.5 MG Tab PO ONE (16:22)
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
[2019-12-11 17:40] LABS: BLOOD UREA NITROGEN,BUN 11 mg/dL (7.0-18.0); CARBON DIOXIDE,CO2 20.8 mmol/L (21.0-32.0); CHLORIDE,CL 100 mmol/L (98-107); GLUCOSE RANDOM 87 mg/dL (74-106); POTASSIUM,K 3.4 mmol/L (3.5-5.1); SODIUM,NA 134 mmol/L (136-145)
[2019-12-11 19:36] VITALS: BP 121/75; PULSE 96
== END 2019-12-11 18:05 | disposition home or self-care (01) ==
LOC: MW.ED 15:24
DX: R55 Syncope and collapse (principal); F17.210 Nicotine dependence, cigarettes, uncomplicated; Z88.1 Allergy status to other antibiotic agents
CPT/HCPCS: 36415; 80053; 83735; 84443; 84484; 85025; 93005; 99284; A9270; 99282

== ENCOUNTER 2019-12-15 04:12 | Emergency (ER) | payer MEDICAID ==
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
[2019-12-15 04:27] VITALS: BP 116/78; PULSE 90
== END 2019-12-15 04:33 | disposition home or self-care (01) ==
LOC: MW.ED 04:12
DX: G44.319 Acute post-traumatic headache, not intractable (principal); Z88.0 Allergy status to penicillin; Z88.1 Allergy status to other antibiotic agents; Z79.899 Other long term (current) drug therapy; Y04.0XXA Assault by unarmed brawl or fight, initial encounter
CPT/HCPCS: 99283; 99284

== ENCOUNTER 2019-12-18 17:43 | Emergency (ER) | payer MEDICAID, OTHER ==
[2019-12-18 19:14] LABS: BLOOD UREA NITROGEN,BUN 7 mg/dL (7.0-18.0); CARBON DIOXIDE,CO2 18.9 mmol/L (21.0-32.0); CHLORIDE,CL 97 mmol/L (98-107); GLUCOSE RANDOM 82 mg/dL (74-106); POTASSIUM,K 3.4 mmol/L (3.5-5.1); SODIUM,NA 134 mmol/L (136-145)
[2019-12-18] MEDS ORDERED: Sodium Chloride 0.9% 1,000 ML IV ONE (19:34)
[2019-12-18] MEDS ORDERED: Ondansetron 4 MG/2 ML SDV IVPUSH ONE (19:34)
[2019-12-18 20:23] VITALS: PULSE 83
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
--- NOTE | 2019-12-18 20:51 | CT ---
Head CT Technique: Multiple axial sections through the brain were obtained. Intravenous contrast was not utilized. Comparison: Prior head CT exam of 01/08/18. Findings: Ventricles along with basal cisterns and sulci over the convexities are within normal limits for the patient's age. No abnormal parenchymal densities are seen. No evidence of intracranial hemorrhage. No midline shift or mass-effect is seen. Visualized paranasal sinuses show nothing acute. No acute calvarial abnormality is appreciated. Visualized paranasal sinuses and mastoid sinuses show nothing acute. Impression: 1. Nothing acute is identified on noncontrast head CT exam. Diagnostic code #1 This report was dictated in MDT
[2019-12-18] MEDS ORDERED: Aspirin 81 MG Tab.Chew PO ONE (21:19)
[2019-12-18] MEDS ORDERED: metroNIDAZOLE 250 MG Tab PO ONE (21:46)
[2019-12-18] MEDS ORDERED: Nitrofurantoin Monohydrate/Macrocrystalline 100 MG Cap PO ONE (21:47)
[2019-12-18 23:41] VITALS: BP 126/83
== END 2019-12-18 22:15 | disposition home or self-care (01) ==
LOC: MW.ED 17:43
DX: G44.319 Acute post-traumatic headache, not intractable (principal); A59.00 Urogenital trichomoniasis, unspecified; N30.00 Acute cystitis without hematuria; R07.89 Other chest pain; F17.210 Nicotine dependence, cigarettes, uncomplicated; Z88.1 Allergy status to other antibiotic agents; Z79.899 Other long term (current) drug therapy; Z90.49 Acquired absence of other specified parts of digestive tract
CPT/HCPCS: 36415; 70450; 80053; 81001; 83605; 84484; 84703; 85025; 87040; 87086; 93005; 96361; 96374; 99285; A9270; J2405; J7030; 99284

== ENCOUNTER 2019-12-30 14:50 | Emergency (ER) | payer MEDICAID, OTHER ==
[2019-12-30] MEDS ORDERED: diphenhydrAMINE 50 MG Cap PO ONE (15:09)
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
[2019-12-30 15:52] VITALS: BP 147/89; PULSE 92
== END 2019-12-30 15:51 | disposition home or self-care (01) ==
LOC: MW.ED 14:50
DX: L25.9 Unspecified contact dermatitis, unspecified cause (principal); F32.9 Major depressive disorder, single episode, unspecified; F41.9 Anxiety disorder, unspecified; F17.210 Nicotine dependence, cigarettes, uncomplicated; Z88.1 Allergy status to other antibiotic agents; Z79.899 Other long term (current) drug therapy
CPT/HCPCS: 99282; A9270

== ENCOUNTER 2020-03-05 10:56 | Emergency (ER) | payer MEDICAID ==
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
== END 2020-03-05 11:07 | disposition left against medical advice (07) ==
LOC: MW.ED 10:56
DX: F41.9 Anxiety disorder, unspecified (principal); Z88.1 Allergy status to other antibiotic agents; F32.9 Major depressive disorder, single episode, unspecified; Z79.899 Other long term (current) drug therapy; Z87.891 Personal history of nicotine dependence
CPT/HCPCS: 99283

== ENCOUNTER 2020-06-28 13:19 | Emergency (ER) | payer MEDICAID ==
[2020-06-28] MEDS ORDERED: Sodium Chloride 0.9% 1,000 ML IV ONE (13:30)
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
[2020-06-28 13:45] VITALS: BP 132/88; PULSE 103
--- NOTE | 2020-06-28 14:11 | PCM.EKG ---
#1 Interpretation EKG Date: 06/28/20 EKG Interpretation Comments: Heart rate = 105 bpm, sinus tachycardia , normal QRS interval, no STEMI. EKG and rhythm strip interpreted by me at 1327
[2020-06-28 14:35] LABS: BLOOD UREA NITROGEN,BUN 11 mg/dL (7.0-18.0); CARBON DIOXIDE,CO2 21.2 mmol/L (21.0-32.0); CHLORIDE,CL 101 mmol/L (98-107); GLUCOSE RANDOM 89 mg/dL (74-106); POTASSIUM,K 3.3 mmol/L (3.5-5.1); SODIUM,NA 138 mmol/L (136-145)
== END 2020-06-28 14:28 | disposition left against medical advice (07) ==
LOC: MW.ED 13:19
DX: R07.9 Chest pain, unspecified (principal); Z88.1 Allergy status to other antibiotic agents; Z88.0 Allergy status to penicillin; Z79.899 Other long term (current) drug therapy
CPT/HCPCS: 36415; 80053; 84443; 84484; 85025; 93005; 99285; J7030; 93010; 99283

== ENCOUNTER 2020-07-11 17:54 | Emergency (ER) | payer MEDICAID ==
[2020-07-11] MEDS ORDERED: MVI, Adult with Vitamin K 10 ML, Thiamine 100 MG, Folic Acid 1 MG in Sodium Chloride 0.... IV ONE ×4 (18:00)
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
[2020-07-11 18:07] VITALS: BP 153/89; PULSE 123
[2020-07-11 18:30] LABS: BLOOD UREA NITROGEN,BUN 16 mg/dL (7.0-18.0); CHLORIDE,CL 106 mmol/L (98-107); GLUCOSE RANDOM 112 mg/dL (74-106); LIPASE 219 U/L (73-393); POTASSIUM,K 3.5 mmol/L (3.5-5.1); SODIUM,NA 144 mmol/L (136-145)
[2020-07-11 18:34] LABS: CARBON DIOXIDE,CO2 22.9 mmol/L (21.0-32.0)
== END 2020-07-11 18:24 | disposition left against medical advice (07) ==
LOC: MW.ED 17:54
DX: R11.0 Nausea (principal); R56.9 Unspecified convulsions; Z88.0 Allergy status to penicillin; Z88.1 Allergy status to other antibiotic agents
CPT/HCPCS: 36415; 80053; 80307; 83690; 83735; 84100; 84703; 85025; 93005; 99283-25

== ENCOUNTER 2020-07-21 16:08 | Emergency (ER) | payer MEDICAID ==
[2020-07-21 16:13] VITALS: BP 150/92; PULSE 97
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
[2020-07-21 16:57] LABS: BLOOD UREA NITROGEN,BUN 15 mg/dL (7.0-18.0); CARBON DIOXIDE,CO2 21.9 mmol/L (21.0-32.0); CHLORIDE,CL 101 mmol/L (98-107); GLUCOSE RANDOM 82 mg/dL (74-106); POTASSIUM,K 3.2 mmol/L (3.5-5.1); SODIUM,NA 139 mmol/L (136-145)
[2020-07-21] MEDS ORDERED: diphenhydrAMINE 50 MG/ML SDV IM ONE (18:06)
[2020-07-21] MEDS ORDERED: Haloperidol Lactate 5 MG/ML SDV IM ONE (18:06)
== END 2020-07-22 00:34 | disposition home or self-care (01) ==
LOC: MW.ED 16:08
DX: R07.9 Chest pain, unspecified (principal); F10.120 Alcohol abuse with intoxication, uncomplicated; Y90.8 Blood alcohol level of 240 mg/100 ml or more; Z88.0 Allergy status to penicillin; Z72.0 Tobacco use
CPT/HCPCS: 36415; 80053; 80307; 83735; 84484; 85025; 93005; 96372; 99285; J1200; J1630; 93010; 99283

== ENCOUNTER 2020-07-23 14:07 | Emergency (ER) | payer MEDICAID ==
[2020-07-23] MEDS ORDERED: Dextrose 5%-Lactated Ringers 1,000 ML IV SCH (14:45)
[2020-07-23 15:02] LABS: BLOOD UREA NITROGEN,BUN 6 mg/dL (7.0-18.0); CARBON DIOXIDE,CO2 23.7 mmol/L (21.0-32.0); CHLORIDE,CL 97 mmol/L (98-107); GLUCOSE RANDOM 137 mg/dL (74-106); POTASSIUM,K 3.6 mmol/L (3.5-5.1); SODIUM,NA 132 mmol/L (136-145)
[2020-07-23 15:19] LABS: ACETAMINOPHEN <2.0 ug/mL
[2020-07-23 16:47] VITALS: BP 152/83; PULSE 96
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
== END 2020-07-23 17:20 ==
LOC: MW.ED 14:07
DX: I10 Essential (primary) hypertension (principal); R20.2 Paresthesia of skin; F17.200 Nicotine dependence, unspecified, uncomplicated; Z88.0 Allergy status to penicillin; Z88.1 Allergy status to other antibiotic agents; Z79.899 Other long term (current) drug therapy
CPT/HCPCS: 36415; 80048; 80143; 80179; 80305; 80307; 81003; 81025; 82040; 82247; 83735; 84443; 84450; 84460; 85025; 93005; 99284; J7121

== ENCOUNTER 2020-07-31 10:33 | Emergency (ER) | payer MEDICAID ==
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
[2020-07-31 11:38] LABS: ACETAMINOPHEN <2.0 ug/mL; BLOOD UREA NITROGEN,BUN 14 mg/dL (7.0-18.0); CARBON DIOXIDE,CO2 24.4 mmol/L (21.0-32.0); CHLORIDE,CL 103 mmol/L (98-107); GLUCOSE RANDOM 124 mg/dL (74-106); LIPASE 93 U/L (73-393); POTASSIUM,K 3.4 mmol/L (3.5-5.1); SODIUM,NA 139 mmol/L (136-145)
[2020-07-31] MEDS ORDERED: Acetaminophen 500 MG Tab PO ONE (16:41)
[2020-07-31 17:30] VITALS: BP 143/78; PULSE 98
== END 2020-07-31 17:45 ==
LOC: MW.ED 10:33
DX: F10.14 Alcohol abuse with alcohol-induced mood disorder (principal); I10 Essential (primary) hypertension; Z88.0 Allergy status to penicillin; Z88.1 Allergy status to other antibiotic agents; Z87.891 Personal history of nicotine dependence; Y90.8 Blood alcohol level of 240 mg/100 ml or more
CPT/HCPCS: 36415; 80053; 80143; 80179; 80305; 80307; 81003; 83690; 83735; 84443; 84703; 85025; 85610; 85730; 93005; 99285; A9270

== ENCOUNTER 2020-08-14 22:38 | Emergency (ER) | payer MEDICAID ==
[2020-08-14] MEDS ORDERED: Ondansetron 4 MG/2 ML SDV IVPUSH ONE (22:55)
[2020-08-14] MEDS ORDERED: Sodium Chloride 0.9% 1,000 ML IV ONE (22:55)
[2020-08-14] MEDS ORDERED: Famotidine 20 MG/2 ML SDV IVPUSH ONE (22:55)
[2020-08-14] MEDS ORDERED: Sodium Chloride 0.9% 2.5 ML Syringe FLUSH PRN (22:55)
[2020-08-14] MEDS ORDERED: Sodium Chloride 0.9% 10 ML Syringe FLUSH PRN (22:55)
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
[2020-08-14 23:45] LABS: BLOOD UREA NITROGEN,BUN 8 mg/dL (7.0-18.0); CARBON DIOXIDE,CO2 26.1 mmol/L (21.0-32.0); CHLORIDE,CL 107 mmol/L (98-107); GLUCOSE RANDOM 103 mg/dL (74-106); LIPASE 141 U/L (73-393); POTASSIUM,K 3.4 mmol/L (3.5-5.1); SODIUM,NA 145 mmol/L (136-145)
[2020-08-15 04:48] VITALS: BP 95/64; PULSE 72
== END 2020-08-15 04:50 | disposition home or self-care (01) ==
LOC: MW.ED 22:38
DX: F10.120 Alcohol abuse with intoxication, uncomplicated (principal); K29.70 Gastritis, unspecified, without bleeding; Z88.1 Allergy status to other antibiotic agents; Z88.0 Allergy status to penicillin; Z79.899 Other long term (current) drug therapy; Z87.891 Personal history of nicotine dependence
CPT/HCPCS: 36415; 80053; 83690; 84703; 85025; 96374; 96375; 99284; J2405; J3490; J7030; 99283

== ENCOUNTER 2020-08-24 12:53 | Emergency (ER) | payer MEDICAID ==
[2020-08-24] MEDS ORDERED: Sodium Chloride 0.9% 2.5 ML Syringe FLUSH PRN (12:57)
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
[2020-08-24] MEDS: Sodium Chloride 0.9% 10 ML Syringe FLUSH PRN ×2 (13:07→13:09)
[2020-08-24 13:42] LABS: ACETAMINOPHEN <2.0 ug/mL; BLOOD UREA NITROGEN,BUN 11 mg/dL (7.0-18.0); CARBON DIOXIDE,CO2 25.5 mmol/L (21.0-32.0); CHLORIDE,CL 105 mmol/L (98-107); GLUCOSE RANDOM 86 mg/dL (74-106); POTASSIUM,K 3.6 mmol/L (3.5-5.1); SODIUM,NA 141 mmol/L (136-145)
[2020-08-24] MEDS ORDERED: NS + KCl 20mEq/L 1,000 ML IV SCH (13:45)
[2020-08-24] MEDS ORDERED: Prochlorperazine 10 MG/2 ML SDV IVPUSH ONE (17:50)
[2020-08-24 19:51] VITALS: BP 145/92; PULSE 92
== END 2020-08-24 19:11 | disposition home or self-care (01) ==
LOC: MW.ED 12:53
DX: F10.120 Alcohol abuse with intoxication, uncomplicated (principal); R45.851 Suicidal ideations; Z88.0 Allergy status to penicillin; Z88.1 Allergy status to other antibiotic agents; Z79.899 Other long term (current) drug therapy; Y90.6 Blood alcohol level of 120-199 mg/100 ml; Z20.822 Contact with and (suspected) exposure to COVID-19
CPT/HCPCS: 36415; 80053; 80143; 80179; 80305; 80307; 81025; 83735; 85025; 87635; 93005; 96374; 99285; J0780; J3480; 93010; 99284; U0002

== ENCOUNTER 2020-08-28 10:51 | Emergency (ER) | payer MEDICAID ==
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
[2020-08-28 12:33] LABS: ACETAMINOPHEN <2.0 ug/mL; BLOOD UREA NITROGEN,BUN 11 mg/dL (7.0-18.0); CARBON DIOXIDE,CO2 22.4 mmol/L (21.0-32.0); CHLORIDE,CL 102 mmol/L (98-107); GLUCOSE RANDOM 99 mg/dL (74-106); POTASSIUM,K 3.7 mmol/L (3.5-5.1); SODIUM,NA 138 mmol/L (136-145)
[2020-08-28 14:06] VITALS: BP 128/86; PULSE 102
== END 2020-08-28 14:02 ==
LOC: MW.ED 10:51
DX: F10.929 Alcohol use, unspecified with intoxication, unspecified (principal); F10.99 Alcohol use, unspecified with unspecified alcohol-induced disorder; I10 Essential (primary) hypertension; Y90.8 Blood alcohol level of 240 mg/100 ml or more; Z20.822 Contact with and (suspected) exposure to COVID-19; Z88.0 Allergy status to penicillin; Z88.1 Allergy status to other antibiotic agents; Z79.899 Other long term (current) drug therapy
CPT/HCPCS: 36415; 80053; 80143; 80179; 80305-QW; 80307; 81001; 81025; 83735; 84443; 85025; 93005; 93010; 99284; 99285-25; U0002

== ENCOUNTER 2020-11-04 06:55 | Day surgery (SDC) | payer MEDICAID ==
[~2020-11-04 06:55] MED LIST: Dexmedetomidine 200 MCG/2 ML SDV ONE; Lactated Ringers 1,000 ML IV SCH; Lidocaine 2% 5 ML SDV ONE; Ondansetron 4 MG/2 ML SDV ONE; propofoL 100 ML ONE
[2020-11-04] MEDS ORDERED: Morphine 2 MG/ML SYRINGE IVPUSH PRN (07:31)
[2020-11-04] MEDS ORDERED: HYDROmorphone 2 MG/ML Syringe IVPUSH PRN (07:31)
[2020-11-04] MEDS ORDERED: Ondansetron 4 MG/2 ML SDV IVPUSH PRN ×2 (07:31→09:19)
[2020-11-04] MEDS ORDERED: Naloxone 0.4 MG/ML Syringe IVPUSH PRN (07:31)
[2020-11-04] MEDS ORDERED: fentaNYL 100 MCG/2 ML SDV IVPUSH PRN (07:31)
[2020-11-04] MEDS ORDERED: Metoclopramide 10 MG/2 ML SDV IVPUSH PRN (07:31)
[2020-11-04] MEDS ORDERED: Albuterol 0.083% 2.5 MG/3 ML Neb Soln NEB PRN (07:31)
[2020-11-04] MEDS ORDERED: Bupivacaine 0.5% 10 ML SDV ONE (07:34)
[2020-11-04] MEDS ORDERED: Ketorolac 30 MG/ML SDV ONE (08:42)
[2020-11-04] MEDS ORDERED: Ondansetron 4 MG/2 ML SDV ONE (08:43)
[2020-11-04] MEDS ORDERED: Metoclopramide 10 MG/2 ML SDV ONE (08:43)
[2020-11-04] MEDS ORDERED: Esmolol 100 MG/10 ML SDV ONE (08:44)
[2020-11-04] MEDS ORDERED: Sugammadex Sodium 200 MG/2 ML VIAL ONE (08:48)
[2020-11-04] MEDS ORDERED: Rocuronium Bromide 50 MG/5 ML Syringe ONE (08:48)
[2020-11-04] MEDS ORDERED: Dexamethasone 4 MG/ML 5 ML MDV ONE (08:54)
[2020-11-04] MEDS ORDERED: Scopolamine 1.5 MG Transdermal Patch ONE (09:15)
[2020-11-04] MEDS ORDERED: Acetaminophen 325 MG Tab PO PRN (09:19)
[2020-11-04] MEDS ORDERED: traMADol 50 MG Tab PO PRN (09:20)
--- NOTE | 2020-11-04 09:23 | PCM.OPNOTE ---
- General Post-Op/Procedure Note Date of Surgery/Procedure: 11/04/20 Operative Procedure(s): Excision 5 cm posterior neck mass Pre Op Diagnosis: Enlarging symptomatic posterior neck mass Post-Op Diagnosis: Infected inclusion cyst Anesthesia Technique: General ET Tube (ASA II) Primary Surgeon: Bakari Smith Fluid Replacement, Intraop: 1,200 EBL in mLs: 2 Condition: Good Free Text/Narrative:: DICTATION 670100 CPT CODE 08844
[2020-11-04] MEDS ORDERED: Lactated Ringers 1,000 ML IV SCH (09:30)
[2020-11-04] MEDS ORDERED: traMADol 50 MG Tab PO ONE (09:49)
--- NOTE | 2020-11-04 11:12 | PCM.POSTAN ---
POST ANESTHESIA ASSESSMENT - MENTAL STATUS Mental Status: Alert, Oriented - VITAL SIGNS Vital Signs: Last Vital Signs Temp 97.2 F 11/04/20 09:11 Pulse 61 11/04/20 09:31 Resp 12 11/04/20 09:31 BP 107/61 11/04/20 09:31 Pulse Ox 96 11/04/20 09:31 - RESPIRATORY Respiratory Status: Respiratory Rate WNL, Airway Patent, O2 Saturation Stable - CARDIOVASCULAR CV Status: Pulse Rate WNL, Blood Pressure Stable - GASTROINTESTINAL GI Status: No Symptoms - POST OP HYDRATION Hydration Status: Adequate & Stable
--- NOTE | 2020-11-04 11:12 | PCM.PREANE ---
Preanesthetic Assessment - Anesthesia/Transfusion/Family Hx Anesthesia History: Prior Anesthesia Without Reaction Other Type of Anesthesia Reaction Comment: REports a sister reacted to anethesia and got real itchy post Transfusion History: No Prior Transfusion(s) - Review of Systems General: No Symptoms Pulmonary: No Symptoms Cardiovascular: No Symptoms Gastrointestinal: No Symptoms Neurological: No Symptoms Other: Reports: None - Physical Assessment NPO Status Date: 11/04/20 NPO Status Time: 00:00 Vital Signs: Last Vital Signs Temp 97.2 F 11/04/20 09:11 Pulse 61 11/04/20 09:31 Resp 12 11/04/20 09:31 BP 107/61 11/04/20 09:31 Pulse Ox 96 11/04/20 09:31 Height: 5 ft 3 in Weight: 156 lb ASA Class: 3 Mental Status: Alert & Oriented x3 Airway Class: Mallampati = 2 Dentition: Reports: Normal Dentition ROM/Head Extension: Full Lungs: Clear to Auscultation, Normal Respiratory Effort Cardiovascular: Regular Rate, Regular Rhythm - Lab Values: Laboratory Last Values Urine HCG, Qual NEGATIVE (NEGATIVE) 11/04/20 07:03 - Allergies Allergies/Adverse Reactions: Allergies Allergy/AdvReac Type Severity Reaction Status Date / Time amoxicillin trihydrate Allergy Hives Verified 10/29/20 13:32 [From Augmentin] potassium clavulanate Allergy Hives Verified 10/29/20 13:32 [From Augmentin] - Acknowledgements Anesthesia Type Planned: General Anesthesia Pt an Appropriate Candidate for the Planned Anesthesia: Yes Alternatives and Risks of Anesthesia Discussed w Pt/Guardian: Yes Pt/Guardian Understands and Agrees with Anesthesia Plan: Yes PreAnesthesia Questionnaire HEENT History: Reports: Other (See Below) Other HEENT History: wears glasses Cardiovascular History: Reports: Hypertension Respiratory History: Reports: None Gastrointestinal History: Reports: GERD Genitourinary History: Reports: Other (See Below) Other Genitourinary History: cervical cancer dx in 2019 CORE DRILLER History: Reports: , Spontaneous Musculoskeletal History: Reports: None Neurological History: Reports: Head Trauma, Seizure, Other (See Below) Other Neuro History: states seizures in the past, last seizure was approx 5 years ago, head injury in the past Psychiatric History: Reports: Anxiety, Depression Endocrine/Metabolic History: Reports: None Hematologic History: Reports: None Immunologic History: Reports: None Oncologic (Cancer) History: Reports: Cervix Dermatologic History: Reports: None - Infectious Disease History Infectious Disease History: Reports: None Other Infectious Disease History: Pt refuses to answer questions. - Past Surgical History Head Surgeries/Procedures: Reports: None HEENT Surgical History: Reports: Oral Surgery Cardiovascular Surgical History: Reports: None Respiratory Surgical History: Reports: None GI Surgical History: Reports: Cholecystectomy, Colonoscopy, Other (See Below) Other GI Surgeries/Procedures: endoscopic retrograde cholangiopancreatography Female Surgical History: Reports: LEEP Other Female Surgeries/Procedures: LEEP x2 Endocrine Surgical History: Reports: None Neurological Surgical History: Reports: None Musculoskeletal Surgical History: Reports: None Oncologic Surgical History: Reports: Other (See Below) Other Oncologic Surgeries/Procedures: LEEP x2 Dermatological Surgical History: Reports: None - SUBSTANCE USE Tobacco Use Status *Q: Current Every Day Tobacco User Tobacco Use Within Last Twelve Months: Cigarettes - HOME MEDS Home Medications: Home Meds Diltiazem [Cardizem] 180 mg PO DAILY 08/24/20 [History] FLUoxetine [PROzac] 40 mg PO DAILY 08/24/20 [History] Naltrexone 50 mg PO BEDTIME 08/24/20 [History] Amitriptyline [Elavil] 25 mg PO BEDTIME 10/29/20 [History] Pantoprazole Sodium [Protonix] 40 mg PO DAILY 10/29/20 [History] - CURRENT (IN HOUSE) MEDS Current Meds: Current Medications Acetaminophen (Acetaminophen 325 Mg Tab) 325 mg PO Q4H PRN PRN Reason: Fever Greater Than 101 Albuterol (Albuterol 0.083% 2.5 Mg/3 Ml Neb Soln) 2.5 mg NEB ONETIME PRN PRN Reason: Wheezing Droperidol (Droperidol 5 Mg/2 Ml Sdv) 0.625 mg IVPUSH ONETIME PRN PRN Reason: Nausea/Vomiting Fentanyl (Fentanyl 100 Mcg/2 Ml Sdv) 50 mcg IVPUSH Q5M PRN PRN Reason: Pain (mild 1-3) Hydromorphone HCl (Hydromorphone 2 Mg/Ml Syringe) 1 mg IVPUSH Q10M PRN PRN Reason: Pain (moderate 4-6) Lactated Ringer's (Ringers, Lactated) 1,000 mls @ 125 mls/hr IV ASDIRECTED [facility] Last Admin: 11/04/20 07:30 Dose: 125 mls/hr Documented by: Lactated Ringer's (Ringers, Lactated) 1,000 mls @ 125 mls/hr IV ASDIRECTED [facility] Metoclopramide HCl (Metoclopramide 10 Mg/2 Ml Sdv) 10 mg IVPUSH ONETIME PRN PRN Reason: Nausea/Vomiting Morphine Sulfate (Morphine 2 Mg/Ml Syringe) 2 mg IVPUSH Q10M PRN PRN Reason: Pain (severe 7-10) Naloxone HCl (Naloxone 0.4 Mg/Ml Syringe) 0.1 mg IVPUSH ASDIRECTED PRN PRN Reason: Respiratory Depression Ondansetron HCl (Ondansetron 4 Mg/2 Ml Sdv) 4 mg IVPUSH ONETIME PRN PRN Reason: Nausea/Vomiting Ondansetron HCl (Ondansetron 4 Mg/2 Ml Sdv) 4 mg IVPUSH Q6H PRN PRN Reason: Nausea/Vomiting Tramadol HCl (Tramadol 50 Mg Tab) 50 mg PO Q8H PRN PRN Reason: Pain (moderate 4-6) Discontinued Medications Bupivacaine HCl (Bupivacaine 0.5% 10 Ml Sdv) Confirm Administered Dose 10 ml .ROUTE .STK-MED ONE Stop: 11/04/20 07:35 Dexamethasone (Dexamethasone 4 Mg/Ml 5 Ml Mdv) Confirm Administered Dose 20 mg .ROUTE .STK-MED ONE Stop: 11/04/20 08:55 Dexmedetomidine HCl (Dexmedetomidine 200 Mcg/2 Ml Sdv) Confirm Administered Dose 200 mcg .ROUTE .STK-MED ONE Stop: 11/04/20 06:52 Esmolol HCl (Esmolol 100 Mg/10 Ml Sdv) Confirm Administered Dose 100 mg .ROUTE .STK-MED ONE Stop: 11/04/20 08:45 Propofol (Diprivan 100 Ml) Confirm Administered Dose 100 mls @ as directed .ROUTE .STK-MED ONE Stop: 11/04/20 06:52 Acetaminophen (Ofirmev 1000 Mg/100 Ml) Confirm Administered Dose 100 mls @ as directed .ROUTE .STK-MED ONE Stop: 11/04/20 09:47 Ketorolac Tromethamine (Ketorolac 30 Mg/Ml Sdv) Confirm Administered Dose 30 mg .ROUTE .STK-MED ONE Stop: 11/04/20 08:43 Lidocaine (Lidocaine 2% 5 Ml Sdv) Confirm Administered Dose 5 ml .ROUTE .STK-MED ONE Stop: 11/04/20 06:52 Metoclopramide HCl (Metoclopramide 10 Mg/2 Ml Sdv) Confirm Administered Dose 10 mg .ROUTE .STK-MED ONE Stop: 11/04/20 08:44 Ondansetron HCl (Ondansetron 4 Mg/2 Ml Sdv) Confirm Administered Dose 4 mg .ROUTE .STK-MED ONE Stop: 11/04/20 06:52 Ondansetron HCl (Ondansetron 4 Mg/2 Ml Sdv) Confirm Administered Dose 4 mg .ROUTE .STK-MED ONE Stop: 11/04/20 08:44 Rocuronium [place] (Rocuronium [place] 50 Mg/5 Ml Syringe) Confirm Administered Dose 50 mg .ROUTE .STK-MED ONE Stop: 11/04/20 08:49 Scopolamine (Scopolamine 1.5 Mg Transdermal Patch) Confirm Administered Dose 1.5 mg .ROUTE .STK-MED ONE Stop: 11/04/20 09:16 Sugammadex Sodium (Sugammadex Sodium 200 Mg/2 Ml Vial) Confirm Administered Dose 200 mg .ROUTE .STK-MED ONE Stop: 11/04/20 08:49 Tramadol HCl (Tramadol 50 Mg Tab) 50 mg PO ONETIME ONE Stop: 11/04/20 09:50 Last Admin: 11/04/20 09:55 Dose: 50 mg Documented by:
--- NOTE | 2020-11-04 11:13 | PCM48HPAN ---
Post Anesthesia Note - EVALUATION WITHIN 48HRS OF ANESTHETIC Vital Signs in Normal Range: Yes Patient Participated in Evaluation: Yes Respiratory Function Stable: Yes Airway Patent: Yes Cardiovascular Function Stable: Yes Hydration Status Stable: Yes Pain Control Satisfactory: Yes Nausea and Vomiting Control Satisfactory: Yes Mental Status Recovered: Yes Vital Signs: Last Vital Signs Temp 97.2 F 11/04/20 09:11 Pulse 61 11/04/20 09:31 Resp 12 11/04/20 09:31 BP 107/61 11/04/20 09:31 Pulse Ox 96 11/04/20 09:31
--- NOTE | 2020-11-04 12:17 | OR ---
SURGEON: Bakari Smith M.D. DATE OF PROCEDURE: 11/04/2020 OPERATION PERFORMED: Excision 5 cm, midline posterior neck inclusion cyst. PRIMARY SURGEON: Bakari Smith M.D. ANESTHESIA: General endotracheal. ASA CLASSIFICATION: II. PREOPERATIVE DIAGNOSIS: Enlarging symptomatic, intermittently infected posterior neck mass. POSTOPERATIVE DIAGNOSIS: Infected inclusion cyst, posterior neck. ESTIMATED BLOOD LOSS: 2 mL. INTRAOPERATIVE FLUID REPLACEMENT: 1200 mL of crystalloid. DESCRIPTION OF PROCEDURE: The patient was taken to the operating room and kept on the transfer cart in the supine position. The surgical site had been marked prior to the patient entering the operating room. Time-out was called for appropriate identification of the patient and procedure and repeated just prior to incision. Following satisfactory attainment of general endotracheal anesthesia, the patient was placed on the operating table in the prone position. Care was taken to pad all bony prominences and make sure no limbs were hyperextended. Surgical site was prepped with DuraPrep solution. Sterile drapes were applied. The skin overlying the mass was incised and deepened just down to the skin, where immediately we did have purulent drainage. Aerobic and anaerobic cultures were obtained. The incision was further opened, and using electrocautery, I was able to remove the cyst capsule. Bleeding sites were electrocoagulated. The wound was irrigated with sterile saline solution and all fluid aspirated. The wound was then infiltrated with 10mls of 0.5% Marcaine without epinephrine. The wound was again inspected for hemostasis and no other bleeding was noted. Once that was accomplished, 0.25-inch [place] drains were placed in 2 positions into the wound. The incision was then closed with interrupted 3-0 nylon sutures with care taken to incorporate each of the Aaliyah drain separately. The wound was then sterilely covered. The patient was returned to the transfer cart in the supine position. Following emergence from anesthesia and extubation, she was taken to recovery room in stable condition. BARBARA / JAMI /[id number] TABITHA
[2020-11-04 12:33] VITALS: BP 112/62; PULSE 69
== END 2020-11-04 10:25 | disposition home or self-care (01) ==
LOC: MW.SDS 06:55
PROVIDERS: ATTEND Surgery
DX: L72.0 Epidermal cyst (principal); F17.210 Nicotine dependence, cigarettes, uncomplicated; I10 Essential (primary) hypertension; Z88.8 Allergy status to other drugs, medicaments and biological substances
CPT/HCPCS: 00300; 81025; 87070; 87075; 87205; 88304; A9270-GY; J0131; J1100; J1885; J2405; J2704; J2765; J3490; J7120

== ENCOUNTER 2021-07-19 15:18 | Emergency (ER) | payer MEDICAID ==
[2021-07-19 17:06] VITALS: BP 111/70; PULSE 67
== END 2021-07-19 17:08 | disposition home or self-care (01) ==
LOC: MW.ED 15:18
DX: S63.502A Unspecified sprain of left wrist, initial encounter (principal); I10 Essential (primary) hypertension; F41.9 Anxiety disorder, unspecified; F32.A Depression, unspecified; Z79.899 Other long term (current) drug therapy; Z88.0 Allergy status to penicillin; Z88.1 Allergy status to other antibiotic agents; W19.XXXA Unspecified fall, initial encounter
CPT/HCPCS: 73110-26-LT; 73110-LT; 99283

== ENCOUNTER 2021-10-03 15:44 | Emergency (ER) | payer MEDICAID ==
[2021-10-03] MEDS ORDERED: Acetaminophen 500 MG Tab PO ONE (16:36)
[2021-10-03 17:41] VITALS: BP 136/82; PULSE 78
== END 2021-10-03 17:40 | disposition home or self-care (01) ==
LOC: MW.ED 15:44
DX: S96.911A Strain of unspecified muscle and tendon at ankle and foot level, right foot, initial encounter (principal); I10 Essential (primary) hypertension; K21.9 Gastro-esophageal reflux disease without esophagitis; F17.210 Nicotine dependence, cigarettes, uncomplicated; Z88.0 Allergy status to penicillin; Z79.899 Other long term (current) drug therapy; W18.40XA Slipping, tripping and stumbling without falling, unspecified, initial encounter
CPT/HCPCS: 73630; 99283; A9270

== ENCOUNTER 2021-10-25 07:21 | Emergency (ER) | payer MEDICAID ==
[2021-10-25] MEDS ORDERED: Cephalexin 500 MG Cap PO ONE (07:59)
[2021-10-25] MEDS ORDERED: predniSONE 10 MG Tab PO ONE (07:59)
[2021-10-25 09:22] VITALS: BP 107/65; PULSE 74
== END 2021-10-25 08:23 | disposition home or self-care (01) ==
LOC: MW.ED 07:21
DX: T78.40XA Allergy, unspecified, initial encounter (principal); L03.213 Periorbital cellulitis; I10 Essential (primary) hypertension; K21.9 Gastro-esophageal reflux disease without esophagitis; F41.9 Anxiety disorder, unspecified; F32.A Depression, unspecified; Z88.0 Allergy status to penicillin; Z88.8 Allergy status to other drugs, medicaments and biological substances; Z79.899 Other long term (current) drug therapy
CPT/HCPCS: 99282; A9270

== ENCOUNTER 2021-12-07 20:49 | Emergency (ER) | payer MEDICAID | END 2021-12-07 21:50 | disposition left against medical advice (07) | LOC: MW.ED 20:49 | DX: Z53.21 Procedure and treatment not carried out due to patient leaving prior to being seen by health care provider (principal) ==

== ENCOUNTER 2022-01-25 02:47 | Emergency (ER) | payer MEDICAID ==
[2022-01-25 03:57] LABS: CARBON DIOXIDE,CO2 27.7 mmol/L (21.0-32.0); POTASSIUM,K 2.9 mmol/L (3.5-5.1)
[2022-01-25] MEDS ORDERED: Ketorolac 30 MG/ML SDV IM STA (03:58)
[2022-01-25 04:49] VITALS: BP 94/54; PULSE 82
== END 2022-01-25 04:38 | disposition home or self-care (01) ==
LOC: MW.ED 02:47
DX: F10.129 Alcohol abuse with intoxication, unspecified (principal); Z20.822 Contact with and (suspected) exposure to COVID-19; Y90.6 Blood alcohol level of 120-199 mg/100 ml
CPT/HCPCS: 36415; 70450; 80053; 80305; 80307; 81003; 81025; 82550; 83605; 83735; 84443; 85025; 87635; 96372; 99284; J1885; 99283; U0002

== ENCOUNTER 2022-07-30 16:53 | Emergency (ER) | payer OTHER, MEDICAID ==
[2022-07-30 19:27] VITALS: BP 119/77; PULSE 69
== END 2022-07-30 19:25 | disposition home or self-care (01) ==
LOC: MW.ED 16:53
DX: S97.82XA Crushing injury of left foot, initial encounter (principal); I10 Essential (primary) hypertension; K21.9 Gastro-esophageal reflux disease without esophagitis; F17.210 Nicotine dependence, cigarettes, uncomplicated; Z88.0 Allergy status to penicillin; Z88.8 Allergy status to other drugs, medicaments and biological substances; Z79.899 Other long term (current) drug therapy; W20.8XXA Other cause of strike by thrown, projected or falling object, initial encounter
CPT/HCPCS: 73600-26-LT; 73600-LT; 73630-26-LT; 73630-LT; 99283

== ENCOUNTER 2022-09-13 16:14 | Emergency (ER) | payer MEDICAID ==
[2022-09-13] MEDS ORDERED: Sodium Chloride 0.9% 10 ML Syringe FLUSH PRN (16:23)
[2022-09-13] MEDS ORDERED: Sodium Chloride 0.9% 2.5 ML Syringe FLUSH PRN (16:23)
[2022-09-13 16:40] LABS: BASOPHILS PERCENT AUTO 0.2 % (0.0-1.5); EOSINOPHILS ABSOLUTE AUTO 0.2 K/uL (0.0-0.7); EOSINOPHILS PERCENT AUTO 1.4 % (0.0-7.0); HEMATOCRIT 42.1 % (36.0-46.0); LYMPHOCYTES ABSOLUTE AUTO 3.7 K/uL (0.6-2.4); LYMPHOCYTES PERCENT AUTO 34.9 % (16.0-40.0); MEAN CORPUSCULAR HEMOGLOBIN 33.8 pg (27.0-32.0); MEAN CORPUSCULAR HGB CONC 35.6 g/dL (31.0-37.0); MEAN CORPUSCULAR VOLUME 94.8 fL (80.0-98.0); MONOCYTES ABSOLUTE AUTO 0.3 K/uL (0.0-0.8); MONOCYTES PERCENT AUTO 3.2 % (0.0-15.0); NEUTROPHILS ABSOLUTE AUTO 6.3 K/uL (1.4-5.7); NEUTROPHILS PERCENT AUTO 60.3 % (48.0-80.0); NRBC ABSOLUTE 0 K/uL; PLATELET COUNT,PLT 209 K/uL (150-400); RED BLOOD CELL COUNT 4.44 M/uL (4.30-5.90); WHITE BLOOD CELL COUNT,WBC 10.52 K/uL (4.0-11.0)
[2022-09-13] MEDS ORDERED: Sodium Chloride 0.9% 1,000 ML IV STA (16:41)
[2022-09-13] MEDS ORDERED: Magnesium Sulfate/Water 2 GM in Premix Bag 1 BAG IV STA (16:42)
[2022-09-13 16:51] LABS: APPEARANCE,URINE CLEAR; BILIRUBIN,URINE NEGATIVE (NEGATIVE); COLOR,URINE YELLOW; GLUCOSE,URINE NEGATIVE (NEGATIVE); KETONES,URINE NEGATIVE (NEGATIVE); LEUKOCYTE ESTERASE,URINE NEGATIVE (NEGATIVE); NITRITE,URINE NEGATIVE (NEGATIVE); OCCULT BLOOD,URINE NEGATIVE (NEGATIVE); PROTEIN,URINE NEGATIVE (NEGATIVE); UROBILINOGEN,URINE 0.2 EU/dL (<2.0)
[2022-09-13 16:51] LABS: MAGNESIUM 1.9 mg/dL (1.8-2.4)
[2022-09-13] MEDS ORDERED: Acetaminophen 500 MG Tab PO STA (17:00)
[2022-09-13 17:01] LABS: AMPHETAMINES SCREEN, URINE NEGATIVE (CUTOFF=500); BARBITURATE SCREEN,URINE NEGATIVE (CUTOFF=200); BENZODIAZEPINES SCREEN,URINE NEGATIVE (CUTOFF=150); BUPRENORPHINE SCREEN,URINE NEGATIVE (CUTOFF=10); METHADONE SCREEN, URINE NEGATIVE (CUTOFF=200); METHAMPHETAMINES SCREEN, URINE NEGATIVE (CUTOFF=500); OXYCODONE SCREEN,URINE NEGATIVE (CUT0FF=100); PCP SCREEN,URINE NEGATIVE (CUTOFF=25); PROPOXYPHENE SCREEN,URINE NEGATIVE (CUTOFF=300); THC SCREEN,URINE 20 NG/ML NEGATIVE (CUTOFF=50)
[2022-09-13 17:04] LABS: A/G RATIO 1.1 (0.9-1.6); BILIRUBIN TOTAL 0.2 mg/dL (0.2-1.0); CALCIUM 8.8 mg/dL (8.5-10.1); CREATININE 0.9 mg/dL (0.6-1.0); EST CRCL DRUG DOSING (CG) 73.9 mL/min; POTASSIUM,K 3.7 mmol/L (3.5-5.1); PROTEIN TOTAL,TP 7.8 g/dL (6.4-8.2)
[2022-09-13 18:00] VITALS: BP 124/91; PULSE 81
== END 2022-09-13 18:00 | disposition home or self-care (01) ==
LOC: MW.ED 16:14
DX: F10.920 Alcohol use, unspecified with intoxication, uncomplicated (principal); I10 Essential (primary) hypertension; K21.9 Gastro-esophageal reflux disease without esophagitis; Z79.899 Other long term (current) drug therapy; Z88.0 Allergy status to penicillin; Z88.1 Allergy status to other antibiotic agents; Y90.8 Blood alcohol level of 240 mg/100 ml or more
CPT/HCPCS: 36415; 80053; 80305; 80307; 81003; 81025; 83735; 85025; 96361; 96365; 99284; A9270; J3475; J3490; J7030

== ENCOUNTER 2022-09-24 01:08 | Emergency (ER) | payer MEDICAID ==
[2022-09-24] MEDS ORDERED: Sodium Chloride 0.9% 1,000 ML IV ONE ×2 (01:09→01:11)
[2022-09-24 01:14] VITALS: PULSE 91
[2022-09-24 01:19] LABS: BASOPHILS PERCENT AUTO 0.2 % (0.0-1.5); EOSINOPHILS ABSOLUTE AUTO 0.2 K/uL (0.0-0.7); EOSINOPHILS PERCENT AUTO 1.9 % (0.0-7.0); HEMATOCRIT 41.2 % (36.0-46.0); HEMOGLOBIN 14.3 g/dL (12.0-16.0); LYMPHOCYTES ABSOLUTE AUTO 2.8 K/uL (0.6-2.4); LYMPHOCYTES PERCENT AUTO 32.1 % (16.0-40.0); MEAN CORPUSCULAR HEMOGLOBIN 33.6 pg (27.0-32.0); MEAN CORPUSCULAR HGB CONC 34.7 g/dL (31.0-37.0); MEAN CORPUSCULAR VOLUME 96.7 fL (80.0-98.0); MONOCYTES ABSOLUTE AUTO 0.4 K/uL (0.0-0.8); MONOCYTES PERCENT AUTO 4.7 % (0.0-15.0); NEUTROPHILS ABSOLUTE AUTO 5.4 K/uL (1.4-5.7); NEUTROPHILS PERCENT AUTO 61.1 % (48.0-80.0); NRBC ABSOLUTE 0 K/uL; PLATELET COUNT,PLT 188 K/uL (150-400); RED BLOOD CELL COUNT 4.26 M/uL (4.30-5.90); WHITE BLOOD CELL COUNT,WBC 8.79 K/uL (4.0-11.0)
[2022-09-24] MEDS ORDERED: Acetaminophen 325 MG Tab PO STA (01:41)
[2022-09-24 01:54] LABS: ALBUMIN 3.6 g/dL (3.4-5.0); BILIRUBIN TOTAL 0.1 mg/dL (0.2-1.0); CALCIUM 8.6 mg/dL (8.5-10.1); CARBON DIOXIDE,CO2 25.1 mmol/L (21.0-32.0); CREATININE 0.9 mg/dL (0.6-1.0); EST CRCL DRUG DOSING (CG) 70.8 mL/min; LACTIC ACID 1.6 mmol/L (0.4-2.0); MAGNESIUM 1.8 mg/dL (1.8-2.4); PROTEIN TOTAL,TP 7.3 g/dL (6.4-8.2); TSH ULTRASENSITIVE 0.87 uIU/mL (0.36-3.74)
[2022-09-24] MEDS ORDERED: Potassium Chloride 20 MEQ Tab.ER PO ONE (02:09)
[2022-09-24 03:03] VITALS: BP 131/85
== END 2022-09-24 02:30 | disposition home or self-care (01) ==
LOC: MW.ED 01:08
DX: R56.9 Unspecified convulsions (principal); F10.10 Alcohol abuse, uncomplicated; I10 Essential (primary) hypertension; K21.9 Gastro-esophageal reflux disease without esophagitis; Z88.0 Allergy status to penicillin; Z79.899 Other long term (current) drug therapy; Y90.7 Blood alcohol level of 200-239 mg/100 ml
CPT/HCPCS: 36415; 80053; 80307; 83605; 83690; 83735; 84443; 84703; 85025; 93005; 96360; 99284; A9270; J7030

== ENCOUNTER 2022-11-12 06:46 | Day surgery (SDC) | payer MEDICAID ==
[2022-11-12] MEDS ORDERED: Lactated Ringers 1,000 ML IV SCH (07:00)
[2022-11-12] MEDS ORDERED: Lidocaine 1% 20 ML MDV ONE (07:18)
[2022-11-12] MEDS ORDERED: Bupivacaine 0.5% 10 ML SDV ONE (07:18)
[2022-11-12] MEDS ORDERED: fentaNYL 250 MCG/5 ML SDV ONE (07:27)
[2022-11-12] MEDS ORDERED: Propofol 200 MG/20 ML SDV ONE (07:27)
[2022-11-12] MEDS ORDERED: Ondansetron 4 MG/2 ML SDV IVPUSH PRN (07:29)
[2022-11-12] MEDS ORDERED: Lidocaine 2% 5 ML SDV ONE (07:29)
[2022-11-12] MEDS ORDERED: Morphine 2 MG/ML SYRINGE IVPUSH PRN (07:29)
[2022-11-12] MEDS ORDERED: Metoclopramide 10 MG/2 ML SDV IVPUSH PRN (07:29)
[2022-11-12] MEDS ORDERED: Dexamethasone 4 MG/ML 5 ML MDV ONE (07:29)
[2022-11-12] MEDS ORDERED: Naloxone 0.4 MG/ML SDV IVPUSH PRN (07:29)
[2022-11-12] MEDS ORDERED: droPERidol 5 MG/2 ML SDV IVPUSH PRN (07:29)
[2022-11-12] MEDS ORDERED: fentaNYL 50 MCG/ML SDV IVPUSH PRN (07:29)
[2022-11-12] MEDS ORDERED: HYDROmorphone 1 MG/ML Syringe IVPUSH PRN (07:29)
[2022-11-12] MEDS ORDERED: Albuterol 0.083% 2.5 MG/3 ML Neb Soln NEB PRN (07:29)
[2022-11-12] MEDS ORDERED: Dexmedetomidine 200 MCG/2 ML SDV ONE (07:31)
[2022-11-12] MEDS ORDERED: Water For Injection, Sterile 20 ML ONE (07:31)
[2022-11-12] MEDS ORDERED: Clindamycin Phosphate in D5W 600 MG in Premix Bag 1 BAG IV ONE ×2 (08:11)
[2022-11-12] MEDS ORDERED: Ketorolac 30 MG/ML SDV ONE (08:32)
[2022-11-12] MEDS ORDERED: HYDROmorphone 1 MG/ML Syringe ONE (08:51)
[2022-11-12] MEDS ORDERED: Acetaminophen/HYDROcodone 325-5 MG Tab PO ONE (09:37)
[2022-11-12 11:46] VITALS: BP 113/67; PULSE 67
== END 2022-11-12 09:50 | disposition home or self-care (01) ==
LOC: MW.SDS 06:46
PROVIDERS: ATTEND Surgery
DX: T81.31XA Disruption of external operation (surgical) wound, not elsewhere classified, initial encounter (principal); T81.49XA Infection following a procedure, other surgical site, initial encounter; L92.3 Foreign body granuloma of the skin and subcutaneous tissue; L90.5 Scar conditions and fibrosis of skin; K21.9 Gastro-esophageal reflux disease without esophagitis; F41.9 Anxiety disorder, unspecified; F32.A Depression, unspecified; I10 Essential (primary) hypertension; G43.909 Migraine, unspecified, not intractable, without status migrainosus; F17.210 Nicotine dependence, cigarettes, uncomplicated; Z88.1 Allergy status to other antibiotic agents; Z79.899 Other long term (current) drug therapy; Z88.8 Allergy status to other drugs, medicaments and biological substances; Z90.49 Acquired absence of other specified parts of digestive tract; Z98.890 Other specified postprocedural states
CPT/HCPCS: 11402; 12032; 81025; A9270; J1100; J1170; J1885; J2704; J3010; J3490; J7120; 00300

== ENCOUNTER 2023-01-16 11:20 | Emergency (ER) | payer OTHER, MEDICAID ==
[2023-01-16] MEDS ORDERED: Ibuprofen 600 MG Tab PO ONE (12:19)
[2023-01-16] MEDS ORDERED: Acetaminophen 500 MG Tab PO ONE (12:20)
[2023-01-16 13:59] VITALS: BP 123/67; PULSE 65
== END 2023-01-16 15:05 | disposition home or self-care (01) ==
LOC: MW.ED 11:20
DX: S69.92XA Unspecified injury of left wrist, hand and finger(s), initial encounter (principal); S59.902A Unspecified injury of left elbow, initial encounter; S49.92XA Unspecified injury of left shoulder and upper arm, initial encounter; F17.210 Nicotine dependence, cigarettes, uncomplicated; I10 Essential (primary) hypertension; K21.9 Gastro-esophageal reflux disease without esophagitis; Z88.1 Allergy status to other antibiotic agents; Z91.048 Other nonmedicinal substance allergy status; Z79.899 Other long term (current) drug therapy; W18.30XA Fall on same level, unspecified, initial encounter
CPT/HCPCS: 73080; 73110; 99283; A9270

== ENCOUNTER 2023-03-14 01:05 | Emergency (ER) | payer MEDICAID, OTHER ==
[2023-03-14 01:18] VITALS: BP 118/84; PULSE 107
== END 2023-03-14 01:25 | disposition left against medical advice (07) ==
LOC: MW.ED 01:05
DX: R56.9 Unspecified convulsions (principal); I10 Essential (primary) hypertension; K21.9 Gastro-esophageal reflux disease without esophagitis; Z79.899 Other long term (current) drug therapy; Z91.048 Other nonmedicinal substance allergy status; Z88.0 Allergy status to penicillin
CPT/HCPCS: 99282; 99284

== ENCOUNTER 2023-04-26 13:33 | Emergency (ER) | payer MEDICAID, OTHER ==
[2023-04-26 13:45] VITALS: BP 130/78; PULSE 99
[2023-04-26] MEDS ORDERED: Ondansetron 4 MG/2 ML SDV IVPUSH ONE (13:51)
[2023-04-26] MEDS ORDERED: Ketorolac 30 MG/ML SDV IVPUSH ONE (13:51)
[2023-04-26] MEDS ORDERED: Sodium Chloride 0.9% 1,000 ML IV ONE (13:51)
[2023-04-26 13:59] LABS: APPEARANCE,URINE CLEAR; BILIRUBIN,URINE NEGATIVE (NEGATIVE); COLOR,URINE YELLOW; GLUCOSE,URINE NEGATIVE (NEGATIVE); KETONES,URINE NEGATIVE (NEGATIVE); LEUKOCYTE ESTERASE,URINE NEGATIVE (NEGATIVE); NITRITE,URINE NEGATIVE (NEGATIVE); OCCULT BLOOD,URINE NEGATIVE (NEGATIVE); PH,URINE 5.5 (5.0-8.0); PROTEIN,URINE NEGATIVE (NEGATIVE); UROBILINOGEN,URINE 0.2 EU/dL (<2.0)
== END 2023-04-26 14:15 | disposition left against medical advice (07) ==
LOC: MW.ED 13:33
DX: T74.11XA Adult physical abuse, confirmed, initial encounter (principal); I10 Essential (primary) hypertension; Z90.49 Acquired absence of other specified parts of digestive tract; Z88.0 Allergy status to penicillin; Z88.1 Allergy status to other antibiotic agents; Z91.048 Other nonmedicinal substance allergy status
CPT/HCPCS: 81003; 81025; 99285

== ENCOUNTER 2023-07-17 02:05 | Emergency (ER) | payer MEDICAID ==
[2023-07-17 02:30] LABS: BASOPHILS ABSOLUTE AUTO 0.02 K/uL (0.00-0.20); BASOPHILS PERCENT AUTO 0.2 % (0.0-1.0); EOSINOPHILS ABSOLUTE AUTO 0.33 K/uL (0.00-0.45); EOSINOPHILS PERCENT AUTO 3.4 % (0.0-6.0); HEMATOCRIT 41.1 % (37.0-47.0); HEMOGLOBIN 14.6 g/dL (12.0-16.0); IMMATURE GRAN ABSOLUTE AUTO 0.02 K/uL (0.00-0.05); IMMATURE GRAN PERCENT AUTO 0.2 % (0.0-0.4); LYMPHOCYTES PERCENT AUTO 37.6 % (24.0-44.0); MEAN CORPUSCULAR HGB CONC 35.5 g/dL (32.0-36.0); MEAN PLATELET VOLUME 10.8 fL (9.4-12.3); MONOCYTES ABSOLUTE AUTO 0.36 K/uL (0.00-0.80); MONOCYTES PERCENT AUTO 3.7 % (0.0-8.0); NEUTROPHILS PERCENT AUTO 54.9 % (41.0-71.0); PLATELET COUNT,PLT 196 K/uL (150-400); RED BLOOD CELL COUNT 4.42 M/uL (4.10-5.30); WHITE BLOOD CELL COUNT,WBC 9.83 K/uL (3.9-11.3)
[2023-07-17 02:58] LABS: ACETAMINOPHEN <2.0 ug/mL; ALANINE AMINOTRANSFERASE,ALT 37 IU/L (14-63); ALBUMIN 3.8 g/dL (3.4-5.0); ALKALINE PHOSPHATASE 79 U/L (46-116); ASPARTATE AMNIOTRANSFERASE,AST 23 IU/L (15-37); BILIRUBIN TOTAL 0.2 mg/dL (0.2-1.0); BLOOD UREA NITROGEN,BUN 8 mg/dL (7.0-18.0); CALCIUM 8.8 mg/dL (8.5-10.1); CARBON DIOXIDE,CO2 25.3 mmol/L (21.0-32.0); CHLORIDE,CL 109 mmol/L (98-107); CREATININE 0.9 mg/dL (0.6-1.0); EST CRCL DRUG DOSING (CG) 77.01 mL/min; ESTIMATED GFR 84 mL/min (>60); ETHANOL BLOOD MEDICAL 215 mg/dL; GLUCOSE RANDOM 100 mg/dL (74-106); POTASSIUM,K 3.2 mmol/L (3.5-5.1); PROTEIN TOTAL,TP 7.6 g/dL (6.4-8.2); SALICYLATE 7.8 mg/dL (0.0-20.0); SODIUM,NA 146 mmol/L (136-145)
[2023-07-17] MEDS: Nicotine 21 MG/24 Hr Patch TRDERM ONE (03:20)
[2023-07-17 03:24] LABS: CORONAVIRUS COVID-19 NAA NEGATIVE (NEGATIVE); INFLUENZA A NAA NEGATIVE (NEGATIVE); INFLUENZA B NAA NEGATIVE (NEGATIVE); RESPIRATORY SYNCYTIAL VIR NAA NEGATIVE (NEGATIVE)
[2023-07-17 04:33] VITALS: BP 133/76; PULSE 86
== END 2023-07-17 04:29 | disposition home or self-care (01) ==
LOC: MW.ED 02:05
DX: F10.920 Alcohol use, unspecified with intoxication, uncomplicated (principal); I10 Essential (primary) hypertension; Z91.048 Other nonmedicinal substance allergy status; Z88.8 Allergy status to other drugs, medicaments and biological substances; Z79.899 Other long term (current) drug therapy; Z75.8 Other problems related to medical facilities and other health care
CPT/HCPCS: 0241U; 36415; 80053; 80143; 80179; 80307; 85025; 93005; 99285; A9270; 93010; 99283

== ENCOUNTER 2023-08-21 04:22 | Emergency (ER) | payer MEDICAID ==
[2023-08-21 04:33] VITALS: BP 107/76; PULSE 90
[2023-08-21 04:54] LABS: BASOPHILS ABSOLUTE AUTO 0.04 K/uL (0.00-0.20); BASOPHILS PERCENT AUTO 0.4 % (0.0-1.0); EOSINOPHILS ABSOLUTE AUTO 0.16 K/uL (0.00-0.45); EOSINOPHILS PERCENT AUTO 1.5 % (0.0-6.0); HEMATOCRIT 41.1 % (37.0-47.0); HEMOGLOBIN 14.8 g/dL (12.0-16.0); IMMATURE GRAN ABSOLUTE AUTO 0.01 K/uL (0.00-0.05); IMMATURE GRAN PERCENT AUTO 0.1 % (0.0-0.4); LYMPHOCYTES ABSOLUTE AUTO 3.88 K/uL (1.00-4.80); LYMPHOCYTES PERCENT AUTO 37.4 % (24.0-44.0); MEAN CORPUSCULAR HEMOGLOBIN 33.4 pg (28.0-32.0); MEAN CORPUSCULAR VOLUME 92.8 fL (83.0-99.0); MEAN PLATELET VOLUME 10.8 fL (9.4-12.3); MONOCYTES ABSOLUTE AUTO 0.44 K/uL (0.00-0.80); MONOCYTES PERCENT AUTO 4.2 % (0.0-8.0); NEUTROPHILS ABSOLUTE AUTO 5.85 K/uL (1.80-7.70); NEUTROPHILS PERCENT AUTO 56.4 % (41.0-71.0); PLATELET COUNT,PLT 180 K/uL (150-400); RED BLOOD CELL COUNT 4.43 M/uL (4.10-5.30); WHITE BLOOD CELL COUNT,WBC 10.38 K/uL (3.9-11.3)
[2023-08-21 04:59] LABS: APPEARANCE,URINE CLEAR; BILIRUBIN,URINE NEGATIVE (NEGATIVE); COLOR,URINE YELLOW; GLUCOSE,URINE NEGATIVE (NEGATIVE); KETONES,URINE NEGATIVE (NEGATIVE); LEUKOCYTE ESTERASE,URINE NEGATIVE (NEGATIVE); NITRITE,URINE NEGATIVE (NEGATIVE); OCCULT BLOOD,URINE NEGATIVE (NEGATIVE); PROTEIN,URINE NEGATIVE (NEGATIVE); UROBILINOGEN,URINE 0.2 EU/dL (<2.0)
[2023-08-21 05:18] LABS: ALBUMIN 3.5 g/dL (3.4-5.0); BILIRUBIN TOTAL 0.1 mg/dL (0.2-1.0); CALCIUM 8.2 mg/dL (8.5-10.1); CARBON DIOXIDE,CO2 22.2 mmol/L (21.0-32.0); CREATININE 0.9 mg/dL (0.6-1.0); EST CRCL DRUG DOSING (CG) 70.11 mL/min; MAGNESIUM 1.9 mg/dL (1.8-2.4); POTASSIUM,K 3.1 mmol/L (3.5-5.1)
[2023-08-21] MEDS: Pantoprazole 40 MG in Sodium Chloride 0.9% 10 ML IVPUSH ONE (05:20)
[2023-08-21] MEDS: Alum Hydro/Mag Hydro/Simeth XS 15 ML, Lidocaine 2% 5 ML PO ONE (05:20)
[2023-08-21] MEDS: Ondansetron 4 MG/2 ML SDV IVPUSH ONE (05:20)
[2023-08-21] MEDS: Sodium Chloride 0.9% 1,000 ML IV ONE (05:22)
[2023-08-21] MEDS: Famotidine 20 MG/2 ML SDV IVPUSH ONE (05:41)
[2023-08-21] MEDS: Iopamidol 755 MG/ML 500 ML Multipack Bottle IVPUSH ONE (05:42)
== END 2023-08-21 05:45 | disposition left against medical advice (07) ==
LOC: MW.ED 04:22
DX: R10.11 Right upper quadrant pain (principal); I10 Essential (primary) hypertension; K21.9 Gastro-esophageal reflux disease without esophagitis; Z91.048 Other nonmedicinal substance allergy status; Z88.8 Allergy status to other drugs, medicaments and biological substances; Z79.899 Other long term (current) drug therapy; Z90.49 Acquired absence of other specified parts of digestive tract; Z75.8 Other problems related to medical facilities and other health care
CPT/HCPCS: 36415; 80053; 80307; 81003; 83690; 83735; 84703; 85025; 96374; 99284; A9270; J2405; J7030; C9113; J3490

== ENCOUNTER 2023-10-01 20:25 | Emergency (ER) | payer SELFPAY ==
[2023-10-01 20:36] VITALS: BP 115/79; PULSE 81
[2023-10-01 21:16] LABS: APPEARANCE,URINE CLEAR; BILIRUBIN,URINE NEGATIVE (NEGATIVE); COLOR,URINE YELLOW; GLUCOSE,URINE NEGATIVE (NEGATIVE); KETONES,URINE NEGATIVE (NEGATIVE); LEUKOCYTE ESTERASE,URINE NEGATIVE (NEGATIVE); NITRITE,URINE NEGATIVE (NEGATIVE); OCCULT BLOOD,URINE NEGATIVE (NEGATIVE); PH,URINE 5.5 (5.0-8.0); PROTEIN,URINE NEGATIVE (NEGATIVE); UROBILINOGEN,URINE 0.2 EU/dL (<2.0)
[2023-10-01 21:24] LABS: BASOPHILS ABSOLUTE AUTO 0.02 K/uL (0.00-0.20); BASOPHILS PERCENT AUTO 0.2 % (0.0-1.0); EOSINOPHILS ABSOLUTE AUTO 0.12 K/uL (0.00-0.45); EOSINOPHILS PERCENT AUTO 1.4 % (0.0-6.0); HEMATOCRIT 42.4 % (37.0-47.0); IMMATURE GRAN ABSOLUTE AUTO 0.01 K/uL (0.00-0.05); IMMATURE GRAN PERCENT AUTO 0.1 % (0.0-0.4); LYMPHOCYTES ABSOLUTE AUTO 2.39 K/uL (1.00-4.80); LYMPHOCYTES PERCENT AUTO 28.3 % (24.0-44.0); MEAN CORPUSCULAR HEMOGLOBIN 33.6 pg (28.0-32.0); MEAN CORPUSCULAR HGB CONC 35.4 g/dL (32.0-36.0); MEAN CORPUSCULAR VOLUME 95.1 fL (83.0-99.0); MONOCYTES PERCENT AUTO 3.6 % (0.0-8.0); NEUTROPHILS ABSOLUTE AUTO 5.61 K/uL (1.80-7.70); NEUTROPHILS PERCENT AUTO 66.4 % (41.0-71.0); PLATELET COUNT,PLT 174 K/uL (150-400); RED BLOOD CELL COUNT 4.46 M/uL (4.10-5.30); WHITE BLOOD CELL COUNT,WBC 8.45 K/uL (3.9-11.3)
[2023-10-01 21:45] LABS: ALBUMIN 3.7 g/dL (3.4-5.0); BILIRUBIN TOTAL 0.4 mg/dL (0.2-1.0); CARBON DIOXIDE,CO2 24.8 mmol/L (21.0-32.0); CREATININE 1.4 mg/dL (0.6-1.0); EST CRCL DRUG DOSING (CG) 45.07 mL/min; POTASSIUM,K 2.7 mmol/L (3.5-5.1); PROTEIN TOTAL,TP 7.4 g/dL (6.4-8.2)
[2023-10-01] MEDS: Ondansetron 4 MG Tab.DIS PO STA (22:03)
[2023-10-01] MEDS: Potassium Chloride 20 MEQ Tab.ER PO STA (22:03)
== END 2023-10-01 22:13 | disposition home or self-care (01) ==
LOC: MW.ED 20:25
DX: N93.9 Abnormal uterine and vaginal bleeding, unspecified (principal); I10 Essential (primary) hypertension; K21.9 Gastro-esophageal reflux disease without esophagitis; F17.210 Nicotine dependence, cigarettes, uncomplicated; Z32.02 Encounter for pregnancy test, result negative; Z75.8 Other problems related to medical facilities and other health care; Z91.048 Other nonmedicinal substance allergy status; Z88.0 Allergy status to penicillin; Z88.8 Allergy status to other drugs, medicaments and biological substances; Z79.899 Other long term (current) drug therapy; Z90.49 Acquired absence of other specified parts of digestive tract
CPT/HCPCS: 36415; 80053; 81003; 84702; 85025; 86900; 86901; 99284; A9270; 99283

== ENCOUNTER 2023-10-18 20:24 | Emergency (ER) | payer SELFPAY ==
[2023-10-18 23:23] VITALS: BP 121/73; PULSE 70
== END 2023-10-18 23:23 | disposition home or self-care (01) ==
LOC: MW.ED 20:24
DX: M25.532 Pain in left wrist (principal); I10 Essential (primary) hypertension; Z88.1 Allergy status to other antibiotic agents; Z91.048 Other nonmedicinal substance allergy status; Z75.8 Other problems related to medical facilities and other health care
CPT/HCPCS: 73110-26-LT; 73110-LT; 73130-26-LT; 73130-LT; 99284

== ENCOUNTER 2023-11-02 20:09 | Emergency (ER) | payer MEDICAID ==
[2023-11-02 21:05] VITALS: BP 142/84; PULSE 95
[2023-11-02 21:22] LABS: BASOPHILS ABSOLUTE AUTO 0.03 K/uL (0.00-0.20); BASOPHILS PERCENT AUTO 0.3 % (0.0-1.0); EOSINOPHILS ABSOLUTE AUTO 0.12 K/uL (0.00-0.45); EOSINOPHILS PERCENT AUTO 1.3 % (0.0-6.0); HEMATOCRIT 46.2 % (37.0-47.0); HEMOGLOBIN 16.3 g/dL (12.0-16.0); IMMATURE GRAN ABSOLUTE AUTO 0.01 K/uL (0.00-0.05); IMMATURE GRAN PERCENT AUTO 0.1 % (0.0-0.4); LYMPHOCYTES ABSOLUTE AUTO 2.83 K/uL (1.00-4.80); LYMPHOCYTES PERCENT AUTO 31.2 % (24.0-44.0); MEAN CORPUSCULAR HEMOGLOBIN 32.9 pg (28.0-32.0); MEAN CORPUSCULAR HGB CONC 35.3 g/dL (32.0-36.0); MEAN CORPUSCULAR VOLUME 93.3 fL (83.0-99.0); MEAN PLATELET VOLUME 11.6 fL (9.4-12.3); MONOCYTES PERCENT AUTO 4.4 % (0.0-8.0); NEUTROPHILS ABSOLUTE AUTO 5.69 K/uL (1.80-7.70); NEUTROPHILS PERCENT AUTO 62.7 % (41.0-71.0); PLATELET COUNT,PLT 174 K/uL (150-400); RED BLOOD CELL COUNT 4.95 M/uL (4.10-5.30); WHITE BLOOD CELL COUNT,WBC 9.08 K/uL (3.9-11.3)
[2023-11-02 21:50] LABS: A/G RATIO 1.1 (0.9-1.6); ALANINE AMINOTRANSFERASE,ALT 31 IU/L (14-63); ALBUMIN 4.1 g/dL (3.4-5.0); ALKALINE PHOSPHATASE 69 U/L (46-116); ASPARTATE AMNIOTRANSFERASE,AST 22 IU/L (15-37); BILIRUBIN TOTAL 0.3 mg/dL (0.2-1.0); BLOOD UREA NITROGEN,BUN 7 mg/dL (7.0-18.0); CARBON DIOXIDE,CO2 23.8 mmol/L (21.0-32.0); CHLORIDE,CL 103 mmol/L (98-107); CREATININE 1.3 mg/dL (0.6-1.0); EST CRCL DRUG DOSING (CG) 48.54 mL/min; GLUCOSE RANDOM 117 mg/dL (74-106); POTASSIUM,K 3.7 mmol/L (3.5-5.1); SODIUM,NA 137 mmol/L (136-145)
[2023-11-02 21:51] LABS: ESTIMATED GFR 54 mL/min (>60); HCG QUANTITATIVE < 1.0 mIU/mL
[2023-11-02 22:17] LABS: APPEARANCE,URINE CLEAR; BILIRUBIN,URINE NEGATIVE (NEGATIVE); COLOR,URINE YELLOW; GLUCOSE,URINE NEGATIVE (NEGATIVE); KETONES,URINE NEGATIVE (NEGATIVE); LEUKOCYTE ESTERASE,URINE NEGATIVE (NEGATIVE); NITRITE,URINE NEGATIVE (NEGATIVE); OCCULT BLOOD,URINE NEGATIVE (NEGATIVE); PROTEIN,URINE NEGATIVE (NEGATIVE)
== END 2023-11-02 22:47 | disposition home or self-care (01) ==
LOC: MW.ED 20:09
DX: O65.5 Obstructed labor due to abnormality of maternal pelvic organs (principal); O34.81 Maternal care for other abnormalities of pelvic organs, first trimester; N83.202 Unspecified ovarian cyst, left side; I10 Essential (primary) hypertension; Z91.048 Other nonmedicinal substance allergy status; Z88.0 Allergy status to penicillin; Z79.899 Other long term (current) drug therapy; Z90.49 Acquired absence of other specified parts of digestive tract; Z3A.01 Less than 8 weeks gestation of pregnancy
CPT/HCPCS: 36415; 76801; 76801-26; 80053; 81003; 81025; 84702; 85025; 86900; 86901; 99284

== ENCOUNTER 2023-11-17 03:03 | Emergency (ER) | payer MEDICAID ==
[2023-11-17] MEDS: Acetaminophen 500 MG Tab PO ONE (03:12)
[2023-11-17] MEDS: Ibuprofen 400 MG Tab PO ONE (03:13)
[2023-11-17 04:10] VITALS: BP 121/75; PULSE 76
== END 2023-11-17 04:10 | disposition home or self-care (01) ==
LOC: MW.ED 03:03
DX: S93.402A Sprain of unspecified ligament of left ankle, initial encounter (principal); S83.92XA Sprain of unspecified site of left knee, initial encounter; I10 Essential (primary) hypertension; K21.9 Gastro-esophageal reflux disease without esophagitis; Z79.899 Other long term (current) drug therapy; Z91.048 Other nonmedicinal substance allergy status; Z88.0 Allergy status to penicillin; Z88.8 Allergy status to other drugs, medicaments and biological substances; W10.2XXA Fall (on)(from) incline, initial encounter
CPT/HCPCS: 73590; 73630; 99283; A9270

== ENCOUNTER 2025-03-30 23:04 | Emergency (ER) | payer MEDICAID ==
[2025-03-30] MEDS ORDERED: Sodium Chloride 0.9% 2.5 ML Syringe FLUSH PRN (23:09)
[2025-03-30] MEDS ORDERED: Sodium Chloride 0.9% 10 ML Syringe FLUSH PRN (23:09)
[2025-03-30 23:29] LABS: BASOPHILS ABSOLUTE AUTO 0.03 K/uL (0.00-0.20); BASOPHILS PERCENT AUTO 0.3 % (0.0-1.0); EOSINOPHILS ABSOLUTE AUTO 0.11 K/uL (0.00-0.45); EOSINOPHILS PERCENT AUTO 1.1 % (0.0-6.0); IMMATURE GRAN ABSOLUTE AUTO 0.02 K/uL (0.00-0.05); IMMATURE GRAN PERCENT AUTO 0.2 % (0.0-0.4); LYMPHOCYTES ABSOLUTE AUTO 3.23 K/uL (1.00-4.80); LYMPHOCYTES PERCENT AUTO 31.5 % (24.0-44.0); MEAN PLATELET VOLUME 10.0 fL (9.4-12.3); MONOCYTES ABSOLUTE AUTO 0.33 K/uL (0.00-0.80); MONOCYTES PERCENT AUTO 3.2 % (0.0-8.0); NEUTROPHILS ABSOLUTE AUTO 6.52 K/uL (1.80-7.70); NEUTROPHILS PERCENT AUTO 63.7 % (41.0-71.0); NRBC ABSOLUTE 0.00 K/uL (0.00-0.02); NRBC PERCENT 0.0 /100WBC (0.0-0.2); PLATELET COUNT,PLT 215 K/uL (150-400); RED BLOOD CELL COUNT 4.56 M/uL (4.10-5.30); WHITE BLOOD CELL COUNT,WBC 10.24 K/uL (3.9-11.3)
[2025-03-30] MEDS: Iopamidol 755 MG/ML 500 ML Multipack Bottle IVPUSH ONE (23:32)
[2025-03-30 23:38] LABS: INR 1.03 (0.86-1.11); PTT,PARTIAL THROMBOPLSTIN TIME 27.6 SEC (23.9-30.7)
[2025-03-30 23:42] LABS: A/G RATIO 1.1 (0.9-1.6); ALANINE AMINOTRANSFERASE,ALT 25 IU/L (14-63); ASPARTATE AMNIOTRANSFERASE,AST 22 IU/L (15-37); BILIRUBIN TOTAL 0.2 mg/dL (0.2-1.0); BLOOD UREA NITROGEN,BUN 7 mg/dL (7.0-18.0); CARBON DIOXIDE,CO2 28.2 mmol/L (21.0-32.0); CHLORIDE,CL 103 mmol/L (98-107); CHOLESTEROL HDL 38 mg/dL (40-60); CHOLESTEROL LDL CALCULATED 99 mg/dL (60-180); CHOLESTEROL TOTAL 150 mg/dL (50-200); CREATININE 1.0 mg/dL (0.6-1.0); ETHANOL BLOOD MEDICAL <3 mg/dL; GLUCOSE RANDOM 93 mg/dL (74-106); POTASSIUM,K 3.7 mmol/L (3.5-5.1); PROTEIN TOTAL,TP 7.5 g/dL (6.4-8.2); SODIUM,NA 141 mmol/L (136-145); VLDL CHOLESTEROL 12 mg/dL (5-55)
[2025-03-30 23:43] LABS: ESTIMATED GFR 73 mL/min (>60)
[2025-03-31] MEDS: diphenhydrAMINE 50 MG/ML SDV IVPUSH ONE (00:18)
[2025-03-31] MEDS: Prochlorperazine 10 MG/2 ML SDV IVPUSH ONE (00:18)
[2025-03-31] MEDS: Ketorolac 30 MG/ML SDV IVPUSH ONE (00:28)
[2025-03-31] MEDS: Carboxymethylcellulose Sodium 0.5% Ophth Soln 0.4 ML UD Box of 30 EYERT ONE (01:13)
[2025-03-31 02:22] VITALS: BP 118/77; PULSE 79
== END 2025-03-31 01:16 | disposition home or self-care (01) ==
LOC: MW.ED 23:04
DX: G51.0 Bell's palsy (principal); I10 Essential (primary) hypertension; Z79.899 Other long term (current) drug therapy; Z88.0 Allergy status to penicillin; Z91.048 Other nonmedicinal substance allergy status
CPT/HCPCS: 36415; 70450; 70496; 70498; 80053; 80061; 80307; 83036; 85025; 85610; 85730; 93005; 96361; 96374; 99284; A9270; J1885; J3490; J7030; Q9967; J0780; J1200